=== PATIENT | male | born 1955 | race Caucasian/White ===

== ENCOUNTER 2023-03-07 06:02 | Day surgery (SDC) | payer MEDICARE, SELFPAY ==
[2023-03-07] VITALS (15 sets, daily range): BP systolic 118–168; BP diastolic 80–111; PULSE 61–72; RESP 14–16; TEMP 36.2–36.6; O2SAT 94–96; BMI 36.3
[2023-03-07] MEDS: LACTATED RINGERS 1000 ML 1,000 ML 100 ML IV (06:20)
[2023-03-07] MEDS: SODIUM CHLORIDE 0.9 % (FLUSH) 10 ML SYRINGE IVF (06:46)
[2023-03-07] MEDS: CEFAZOLIN 2 GM INJ IVP (07:25)
--- NOTE | 2023-03-07 07:50 | W.ANESCHARGE ---
Anesthesia Charges Start Date/Time Anesthesia Start Date: 03/07/23 Anesthesia Start Time: 07:15 Stop Date/Time Anesthesia Stop Date: 03/07/23 Anesthesia Stop Time: 08:10
[2023-03-07] MEDS: BUPIVACAINE 0.25% 30 ML INJECTION (07:57)
--- NOTE | 2023-03-07 07:58 | P.ORPRC_ITS ---
Procedure Note Date of procedure: 03/07/23 Procedure: PREOPERATIVE DIAGNOSIS: Left knee medial meniscus tear POSTOPERATIVE DIAGNOSIS: Left knee medial meniscus tear NAME OF OPERATION: Left knee arthroscopic partial medial meniscectomy SURGEON: Eduard Cobb MD PHYSICIAN OFFICE CLIN ASST: Alice García PA-C ANESTHESIA: General ESTIMATED BLOOD LOSS: 0 mL COMPLICATIONS: None SPECIMENS: None DRAINS: None PREOPERATIVE ANTIBIOTICS: Ancef 2 gram INDICATIONS: The patient is a 67-year-old with a history of left knee medial pain. MRI scan is consistent with a medial meniscus tear. Despite appropriate nonoperative management, including activity modification, antiinflammatories, tjcy-kyt-epqtfft pain medication, bracing, physical therapy, and injections they continue to have pain and disability. Operative intervention was offered. The risks, benefits and expected outcomes were discussed in detail. These included but were not limited to: Infection, bleeding, injury to blood vessel or nerve, venous thromboembolism. All questions were answered to their satisfaction. PROCEDURE: Spinal anesthesia was administered. The patient was placed supine on the operating room table. The left lower extremity was prepped and draped in the usual sterile fashion. The limb was exsanguinated with the Karson bandage. The pneumatic tourniquet was inflated to 300 mmHg. A standard anterolateral portal was established. The arthroscope was introduced. The working portal was established anteromedially. Diagnostic arthroscopy was performed with findings as follows: The suprapatellar pouch is normal. Articular surface on the patella shows diffuse grade 2/3 change. Articular surface on the trochlea shows diffuse grade 1/2 change. The medial gutter is normal. The medial compartment shows diffuse grade 3 change on the medial femoral condyle, grade 2 change on the medial tibial plateau. The medial meniscus has a complex degenerative tear of the posterior horn, into the midbody. This primarily consists of a small radial tear at the leading edge of the posterior horn with some undersurface horizontal cleavage tearing. There is a larger radial tear, just off the posterior root, from the leading edge to the capsule. The notch shows the ACL to be intact. The lateral compartment shows normal articular cartilage on the lateral femoral condyle and lateral tibial plateau. The lateral meniscus is normal. The lateral gutter is normal. There is chondrocalcinosis of both menisci The undersurface of the posterior horn of the medial meniscus was debrided to a stable base using a combination of baskets and shaver through both portals. The stump, at the root was debrided with the shaver and basket. Unstable chondral flaps on the medial femoral condyle and patella were debrided with the shaver through both portals, taken to a stable base. Arthroscopic instruments were removed, the portal sites were Steri-Stripped closed, the knee was infiltrated with 30 mL of 0.25% Marcaine without epinephrine. A dry dressing was applied, the tourniquet was released. Sponge and needle counts were correct x 2. The patient tolerated the procedure well. There were no apparent complications. They were carefully transferred to the hospital bed and taken to the postanesthesia care unit in satisfactory condition. PLAN: The patient will be discharged to home. They may weightbear as tolerates. Range of motion will be unrestricted. They will follow up in the office next week for a wound check.
--- NOTE | 2023-03-07 07:59 | W.ANESCHARGE ---
Anesthesia Charges Start Date/Time Anesthesia Start Date: 03/07/23 Anesthesia Start Time: 07:15 Stop Date/Time Anesthesia Stop Date: 03/07/23 Anesthesia Stop Time: 08:10
[2023-03-07] MEDS: LABETALOL HCL 5 MG/ML inj IVP (08:52)
== END 2023-03-07 10:09 | disposition home or self-care (01) ==
PROVIDERS: PCP Family Medicine; Visit Provider Orthopaedic Surgery
PROC: (CPT 29870; principal; 2023-03-07 07:15)
DX: M23.222 Derangement of posterior horn of medial meniscus due to old tear or injury, left knee (principal)
CPT/HCPCS: 29881; 01400; J0690; J2250; J2704; J3010; J3490; J7120

== ENCOUNTER 2023-06-30 19:07 | Emergency (ER) | payer MEDICARE, SELFPAY ==
[2023-06-30 19:29] VITALS: BP 171/106; PULSE 67; RESP 18; TEMP 37; O2SAT 99; BMI 31.3
--- NOTE | 2023-06-30 19:58 | CRLHL7_ITS ---
For Patients: As a result of the Century Cures Act, medical imaging exams and procedure reports are released immediately into your electronic medical record. You may view this report before your referring provider. If you have questions, please contact your health care provider. INDICATION: Suprapubic pain, back pain, hematuria. TECHNIQUE: CT abdomen and pelvis without contrast. Permanently recorded images are archived. COMPARISON: CT abdomen and pelvis 03/16/2015. FINDINGS: Lower chest: Multiple calcified granuloma throughout the lung bases. Liver: Normal in size and attenuation. No suspicious masses. Gallbladder and bile ducts: No stones or inflammation. No biliary dilatation. Pancreas: Unremarkable. No mass or inflammation. Spleen: Normal in size. No masses. Adrenal glands: Normal in size. No nodules. Kidneys, Ureters, and Bladder: No suspicious renal masses, stones, or hydronephrosis. Unremarkable ureters. There are 7 round stones within the bladder lumen, measuring up to 1 cm. Mild circumferential bladder wall thickening with perivesicular inflammatory stranding. GI tract: Unremarkable. No evidence for obstruction or inflammation. The appendix is not clearly visualized. Vasculature: Abdominal aorta is normal in caliber. Lymph nodes: No lymphadenopathy. Peritoneum/Abdominal Wall: Prior ventral hernia repair. No free air or significant free fluid. Pelvis: Prostatomegaly. Bones: Extensive posterior and anterior lumbar fusion hardware from L1-S1. there are also fixation screws within the iliac bone bilaterally. IMPRESSION: 7 round stones within the bladder lumen measuring up to 1 cm with circumferential bladder wall thickening and perivesicular inflammation. Findings compatible with cystitis. Recommend correlation with urinalysis. No hydronephrosis. Prostatomegaly. Please note that all CT scans at this facility use dose modulation, iterative reconstruction, and/or weight-based dosing when appropriate to reduce radiation dose to as low as reasonably achievable. Dictated by Jamison Pop MD @ 06/30/2023 9:21:58 PM (Electronically Signed)
[2023-06-30 20:07] LABS: Lactate* 1.1 mmol/L (0.5-1.9)
[2023-06-30 20:09] LABS: Basophils Absolute Auto 0.02 K/uL (0.00-0.30); Basophils Percent Auto 0.2 % (0.0-3.0); Eosinophils Absolute Auto 0.16 K/uL (0.00-0.50); Eosinophils Percent Auto 1.7 % (0.0-7.0); Hematocrit 44.9 % (37.0-53.0); Hemoglobin* 15.4 gm/dL (13.5-17.5); Immature Granulocytes Abs Auto 0.01 K/uL (0.00-0.30); Immature Granulocytes Pct Auto 0.1 %; Lymphocytes Absolute Auto 2.09 K/uL (0.90-2.90); Lymphocytes Percent Auto 22.5 % (20-44); Mean Corpuscular HGB Conc 34 gm/dL (32-36); Mean Corpuscular Hemoglobin 31 pg (26-34); Mean Corpuscular Volume 90 fL (80-100); Monocytes Percent Auto 8.6 % (0.0-11.0); Neutrophils Percent Auto 66.9 % (42.0-72.0); Platelet Count* 178 K/uL (140-440); RDW Coefficient of Variation % 12.3 % (11.5-15.5); Red Blood Count 5.01 m/uL (4.30-5.90); White Blood Count* 9.28 K/uL (4.50-11.00)
[2023-06-30 20:11] LABS: Slide Review Reflex No
[2023-06-30 20:17] LABS: Appearance Urine Cloudy (Clear); Bilirubin Urine Negative (Negative); Blood Urine 2+ (Negative); Color Urine Yellow (Yellow); Glucose Urine Negative (Negative); Ketones Urine Negative (Negative); Leukocyte Esterase Urine Negative (Negative); Nitrite Urine Negative (Negative); Protein Urine 3+ (Negative); Specific Gravity Urine >= 1.030 (1.000-1.030); pH Urine 6.5 (5.0-8.5)
[2023-06-30 20:19] LABS: Creatinine, Point-of-Care* 0.8 mg/dl (0.6-1.3)
[2023-06-30 20:25] LABS: Chloride* 108 mmol/L (96-114)
[2023-06-30 20:26] LABS: Potassium* 3.8 mmol/L (3.6-5.1); Sodium* 137 mmol/L (135-149)
[2023-06-30 20:28] LABS: Bacteria Urine Few; Fine Granular Casts Urine Few; Squamous Epithelial Cell Urine Few (None-Few)
[2023-06-30 20:28] LABS: Creatinine* 0.7 mg/dL (0.5-1.5); Est. Creatinine Clearance* 67.94; Estimated Glomerular Filt Rate 102 ml/min
[2023-06-30 20:29] LABS: Anion Gap 7 mEq/L (7-15); Blood Urea Nitrogen* 20 mg/dL (7-30); Calcium* 8.7 mg/dL (8.4-10.6); Carbon Dioxide* 22 mmol/L (20-32); Glucose* 86 mg/dL (60-115)
[2023-06-30] MEDS: HYDROmorphone 0.5 mg/0.5 ml inj IVP (20:30)
--- NOTE | 2023-06-30 20:59 | ED.GENADULT ---
HPI - General Adult General Chief complaint: Urogenital Problems, Male Stated complaint: Severe pain-cant urinate-blood Time Seen by Provider: 06/30/23 19:30 History of Present Illness HPI narrative: This is a 68-year-old male who has a history of low back problems and multiple low back surgeries including fusion of his entire lumbar spine, history of multiple previous kidney stones (no previous urologic interventions necessary), osteoarthritis who presents to ER today with his for evaluation of symptoms including hematuria, urinary urgency and frequency and some urinary incontinence, suprapubic pain flank pain, all ongoing intermittently for about 5 weeks. Patient said he has had symptoms of intermittent episodes of pain in the suprapubic rate and that sometimes radiates to his flank that happen every few days or fiber 6 days for the past 5 weeks or so. It typically have a day or to a bad pain and then the following day will pass urine that is frankly bloody. The day after that help pass urine with dark purplish/reddish material and sometimes whitish material. After that symptoms will subside for a few days and then recur with an episode of pain, followed by bleeding, followed by more material. He has not had any fevers. No vomiting. Bowel movements normal. Says for the past couple of weeks he has actually had trouble with dribbling and incontinence of urine. No new back pain. He saw a provider at the [facility] clinic. No urinalysis, labs, or scan. He was given outpatient referral to see a urologist, but that apparently is not available until August. Because of his ongoing symptoms he came here to the ER tonight. He cannot wait until August to have evaluation. Related Data Home Medications Medication Instructions Recorded Confirmed tamsulosin 0.4 mg capsule 0.4 mg PO DAILY 06/30/23 06/30/23 Previous Rx's Medication Instructions Recorded cefdinir 300 mg capsule 300 mg PO BID #20 caps 06/30/23 hydrocodone 5 mg-acetaminophen 325 1 tab PO Q6H PRN pain #10 tabs 06/30/23 mg tablet Allergies Allergy/AdvReac Type Severity Reaction Status Date / Time No Known Drug Allergies Allergy Verified 06/30/23 19:31 [facility] Medical History (Updated 06/30/23 @ 22:10 by Jamison Munoz MD) Essential hypertension ?I10 - Essential (primary) hypertension (ICD-10) Adjustment disorder with mixed anxiety and depressed mood ?F43.23 - Adjustment disorder with mixed anxiety and depressed mood (ICD-10) Lumbar stenosis with neurogenic claudication ?M48.062 - Spinal stenosis, lumbar region with neurogenic claudication (ICD-10) Thrombocytopenia ?D69.6 - Thrombocytopenia, unspecified (ICD-10) DDD (degenerative disc disease), lumbar ?M51.36 - Other intervertebral disc degeneration, lumbar region (ICD-10) 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 ?F06.30 - Mood disorder due to known physiological condition, unspecified (ICD-10) Other diseases of lung, not elsewhere classified ?J98.4 - Other disorders of lung (ICD-10) Hyperlipidemia ?E78.5 - Hyperlipidemia, unspecified (ICD-10) Heart contusion without mention of open wound into thorax ?S26.91XA - Contusion of heart, unspecified with or without hemopericardium, initial encounter (ICD-10) Surgical History (Updated 03/07/23 @ 16:21 by Ana Maria Valverde ~ [facility], [facility]) Status post arthroscopic partial medial meniscectomy of left knee (03/07/23) ?Z98.890 - Other specified postprocedural states (ICD-10) ?Z87.828 - Personal history of other (healed) physical injury and trauma (ICD-10) Hx of umbilical hernia repair ?Z98.890 - Other specified postprocedural states (ICD-10) ?Z87.19 - Personal history of other diseases of the digestive system (ICD-10) H/O lumpectomy ?Z98.890 - Other specified postprocedural states (ICD-10) History of lumbar fusion (~2014) ?Z98.1 - Arthrodesis status (ICD-10) Hx of appendectomy ?Z90.49 - Acquired absence of other specified parts of digestive tract (ICD-10) Social History Smoking Status: Never smoker How often do you have a drink containing alcohol: never AUDIT-C Alcohol total score: 0 Non-prescribed substance use: denies use Exam Narrative: Exam Narrative: Constitutional: Appears well-developed and well-nourished. Alert. Conversant, but mildly hard of hearing. Non toxic. HENT: Head: Atraumatic. Nose: Nose normal. Mouth/Throat: Oral mucosa is clear and moist. no trismus. Pharynx normal. Tonsils symmetric. No tonsillar enlargement, erythema, or exudate. Eyes: Conjunctivae normal. EOM normal. Pupils equal, round, and reactive to light. No scleral icterus. Neck: Normal range of motion. Neck supple. No tracheal deviation present. Cardiovascular: Normal rate, regular rhythm. No gallop. No friction rub. No murmur heard. Symmetric radial artery pulses Pulmonary/Chest: Effort normal. No stridor. No respiratory distress. No wheezes. No rales. No rhonchi . No tenderness. Abdominal: Soft. Bowel sounds normal. No distension. Suprapubic mass. No tenderness. No rebound. No guarding. No CVA tenderness Musculoskeletal: Healed posterior midline lumbar incision and healed anterior midline lumbar incision from previous fusion surgeries. RUE: Normal range of motion. No tenderness. No deformity LUE: Normal range of motion. No tenderness. No deformity RLE: Normal range of motion. No edema. No tenderness. No deformity LLE: Normal range of motion. No edema. No tenderness. No deformity Neurological: Alert and oriented to person, place, and time. Normal strength. CN II-VII intact. No sensory deficit. GCS eye subscore is 4. GCS verbal subscore is 5. GCS motor subscore is 6. Normal coordination Skin: Skin is warm and dry. No rash noted. No pallor. Normal capillary refill. Psychiatric: Normal mood. Normal affect. Const: Vital Signs, click to edit/add: Vital Signs - 24 hr 06/30/23 19:29 Temperature 98.6 F Pulse Rate [Right Pulse Oximeter] 67 Respiratory Rate 18 Blood Pressure [Ri ght Upper Arm] 171/106 H Pulse Oximetry 99 Oxygen Delivery Me thod Room Air Course Vital Signs Vital signs: Initial Vital Signs Temperature 98.6 F 06/30/23 19:29 Temperature Source Temporal Artery Scan 06/30/23 19:29 Pulse Rate 67 06/30/23 19:29 Respiratory Rate 18 06/30/23 19:29 Blood Pressure 171/106 H 06/30/23 19:29 Blood Pressure Mean 127 H 06/30/23 19:29 Blood Pressure Position Sitting 06/30/23 19:29 Pulse Oximetry 99 06/30/23 19:29 Oxygen Delivery Method Room Air 06/30/23 19:29 Vital Signs Temperature 98.6 F 06/30/23 19:29 Pulse Rate 67 06/30/23 19:29 Respiratory Rate 18 06/30/23 19:29 Blood Pressure 171/106 H 06/30/23 19:29 Pulse Oximetry 99 06/30/23 19:29 Oxygen Delivery Method Room Air 06/30/23 19:29 Temperature 98.6 F 06/30/23 19:29 Pulse Rate 67 06/30/23 19:29 Respiratory Rate 18 06/30/23 19:29 Blood Pressure 171/106 H 06/30/23 19:29 Pulse Oximetry 99 06/30/23 19:29 Oxygen Delivery Method Room Air 06/30/23 19:29 Medical Decision Making MDM Narrative Medical decision making narrative: 68-year-old male with a history of multiple previous kidney stones presenting to the ER today with intermittent symptoms of suprapubic pain, hematuria, dysuria and sometimes bladder incontinence ongoing intermittently for about 5 weeks. Differential here includes kidney stone, pyelonephritis, urosepsis, cystitis, bladder stones, bladder fistula, pelvic abscesses, diverticulitis, among other. He does have previous lumbar fusion surgery and chronic back pain but does not have any other symptoms of a expect flaring back pain, new numbness or tingling in his legs to suggest cauda quinine or other neurologic surgical emergency. Workup here in the ER reveals evidence for urinary tract infection given findings on urinalysis and abnormal bladder on CT. Fortunately no obstructing kidney stones. Kidney function normal. White count normal. Patient is hemodynamically stable, nontoxic appearing and I do not think he has urosepsis at this time. He does have multiple bladder stones. Suspect these are probably colonized by bacteria so would be difficult to completely clear his infection until they were removed. Patient has previously been referred as an outpatient through the [employer] system to Urology, but cannot get an appointment until August. Discussed with urology through [facility]. Discussed with the on-call urologist for [facility], Dr. Morgan. His recommendation would be to start antibiotics and refer for outpatient Neurology follow-up. He was surprised to hear that the patient has been delayed until August to get an appointment. He indicates that if they call the main rehabilitation aide/scheduler line [phone] that the patient will likely be able to get an appointment to see a urologist within 1-2 weeks (which he indicates is a reasonable time frame to deal with his bladder stones). No indication for emergent transfer to [facility]. Discussed the plan of care with the patient and his . They are pleased that we were able to do diagnostic workup here and contact Urology. They are agreeable to start antibiotics here-Rocephin 1 g IV and will continue antibiotics at home-Omnicef 300 mg b.i.d. for complicated UTI. Urine culture pending. Prescription for [place] prescribed for pain relief. I do believe they are reliable to call Monday morning to schedule her follow-up appointment. Precautions for return to the ER carefully reviewed. Questions answered. Patient and his are in agreement. Lab Data Labs: Lab Results 06/30/23 06/30/23 Range/Units 20:00 20:12 WBC 9.28 (4.50-11.00) K/uL RBC 5.01 (4.30-5.90) m/uL Hgb 15.4 (13.5-17.5) gm/dL Hct 44.9 (37.0-53.0) % MCV 90 (80-100) fL MCH 31 (26-34) pg MCHC 34 (32-36) gm/dL RDW Coeff of Ramona 12.3 (11.5-15.5) % Plt Count 178 (140-440) K/uL Neut % (Auto) 66.9 (42.0-72.0) % Lymph % (Auto) 22.5 (20-44) % [place] % (Auto) 8.6 (0.0-11.0) % Eos % (Auto) 1.7 (0.0-7.0) % Baso % (Auto) 0.2 (0.0-3.0) % Neut # (Auto) 6.20 (1.7-7.0) K/uL Lymph # (Auto) 2.09 (0.90-2.90) K/uL [place] # (Auto) 0.80 (0.00-0.90) K/UL Eos # (Auto) 0.16 (0.00-0.50) K/uL Baso # (Auto) 0.02 (0.00-0.30) K/uL Abs Immat Gran (auto) 0.01 (0.00-0.30) K/uL Imm/Tot Granulo (auto) 0.1 % Sodium 137 (135-149) mmol/L Potassium 3.8 (3.6-5.1) mmol/L Chloride 108 (96-114) mmol/L Carbon Dioxide 22 (20-32) mmol/L Anion Gap 7 (7-15) mEq/L BUN 20 (7-30) mg/dL Creatinine 0.7 (0.5-1.5) mg/dL Estimated Creat Clear 67.94 Estimated GFR 102 ml/min Glucose 86 (60-115) mg/dL Lactate 1.1 (0.5-1.9) mmol/L Calcium 8.7 (8.4-10.6) mg/dL Urine Color Yellow (Yellow) Urine Appearance Cloudy A (Clear) Urine pH 6.5 (5.0-8.5) Ur Specific [place] >= 1.030 (1.000-1.030) Urine Protein 3+ A (Negative) Urine Glucose (UA) Negative (Negative) Urine Ketones Negative (Negative) Urine Blood 2+ A (Negative) Urine Nitrite Negative (Negative) Urine Bilirubin Negative (Negative) Urine Urobilinogen 4.0 A (0.2-1.0) Ur Leukocyte Esterase Negative (Negative) Urine RBC 5-10 A (0-2) Urine WBC 5-10 A (0-5) Ur Squamous Epith Cells Few (None-Few) Urine Bacteria Few A (None) Fine Granular Casts Few A (None) POC Creatinine 0.8 (0.6-1.3) mg/dl Imaging Data CT scan - abdomen: Attestation: I have reviewed the pertinent imaging results. Radiologist's impression: IMPRESSION: 7 round stones within the bladder lumen measuring up to 1 cm with circumferential bladder wall thickening and perivesicular inflammation. Findings compatible with cystitis. Recommend correlation with urinalysis. No hydronephrosis. Prostatomegaly. Discharge Plan Discharge Clinical Impression: Bladder stones, Cystitis, Prostatic hypertrophy Patient Disposition: Home, Self-Care Condition: Stable Instructions: Urinary Tract Infection in Men (DC), Bladder Stones (ED) Additional Instructions: Please start on the antibiotics tomorrow to treat her bladder infection. Use pain medication if needed for pain, but be careful because pain killers can cause drowsiness, sedation, constipation. Pain killers can be addictive. On Monday morning, call [phone] to schedule a follow-up appointment with [facility]. Please tell the rehabilitation aide/scheduler that you were in the ER tonight and that we discussed with the on-call urologist, Dr. Morgan. you need appointment within 1-2 weeks to recheck for your bladder bladder infection and bladder stones. If you have worsening symptoms, worsening pain, higher fever, nausea or vomiting, weakness, if you are unable to take her antibiotics, or if you have any problems, please come back to the ER to be rechecked. Activity Level: No Restrictions Discharge Diet: Regular Prescriptions: New cefdinir 300 mg capsule 300 mg PO BID Qty: 20 0RF hydrocodone-acetaminophen 5-325 mg tablet 1 tab PO Q6H PRN (Reason: pain) Qty: 10 0RF No Action tamsulosin 0.4 mg capsule 0.4 mg PO DAILY Follow Up/Referrals: Provider,Not a Local [Primary Care Provider] - Stand Alone Forms: [id number] [email or web address] Info Instructions
[2023-06-30] MEDS: ONDANSETRON 2 MG/ML inj 4 MG IVP (21:53)
[2023-06-30] MEDS: cefTRIAXone 1 GM in 0.9 % SODIUM CHLORIDE Mini-bag 100 ML IVPB (21:53)
== END 2023-06-30 22:21 | disposition home or self-care (01) ==
PROVIDERS: Emergency Provider Emergency Medicine
DX: N21.0 Calculus in bladder (principal); N30.90 Cystitis, unspecified without hematuria; N40.0 Benign prostatic hyperplasia without lower urinary tract symptoms
CPT/HCPCS: 36415; 51798; 74176; 80048; 81001; 82565; 83605; 85025; 87086; 96374; 96375; 99283; 99284; 99285; J0696; J1170; J2405

== ENCOUNTER 2023-07-07 06:54 | Outpatient (CLI) | payer MEDICARE, SELFPAY ==
--- NOTE | 2023-07-07 07:15 | MR_ITS ---
[address] [address] Phone:?[phone] Fax:?[phone] Referring Physician Information: Jamison Klein M.D. [address] [facility] [address] Phone:?[phone] Fax:?[phone] Patient:Kirsty Iyer D.O.B:?1955 Sex:?Male Phone:?[phone] [facility] MRN:?[id number] Exam Date:?07/07/2023 EXAM: MR PROSTATE WITHOUT AND WITH CONTRAST CLINICAL INFORMATION: Diagnosis Code: Z12.5 - Encounter for screening for malignant neoplasm of prostate. COMPARISON: None. TECHNICAL INFORMATION: Examination was performed on a 1.5T magnet. High- resolution T1 axial, T2 axial, T2 FSE sagittal and T2 FSE coronal images were obtained through the prostate gland and seminal vesicles. Diffusion images were obtained in the axial plane. 18 mL of Dotarem were injected with dynamic enhanced images of the prostate gland in the axial plane. T1 fat saturation sagittal and coronal images were obtained postinjection. Images were analyzed with 3-D postprocessing online under concurrent physician supervision using a separate [employer] workstation. INTERPRETATION: The prostate gland measures 6.0 x 5.4 x 6.0 cm (TV x AP x SI) for an estimated volume of 90 cc. Transitional and central zones: There is moderate glandular and stromal hyperplasia with well encapsulated BPH nodules (PI-RADS 2). No focal CZ/TZ lesions concerning for clinically significant adenocarcinoma. Peripheral zones: No focal PZ lesions concerning for clinically significant adenocarcinoma (PI-RADS 1). Pelvis: No jessica transcapsular disease. Neurovascular bundles and seminal vesicles appear intact. No pelvic lymphadenopathy or evident bone marrow disease. The urinary bladder contains multiple small (~8 mm) intraluminal calculi. CONCLUSION: 1. Moderate prostatomegaly with stigmata of BPH. No suspicious (PI-RADS 3, 4, or 5) lesions identified. 2. No jessica transcapsular, yanet, or skeletal disease in the pelvis. 3. Multiple small bladder calculi. PI-RADS Assessment Categories: Score 1 = very low; clinically significant disease highly unlikely Score 2 = low; clinically significant disease is unlikely Score 3 = intermediate; clinically significant disease is equivocal Score 4 = high; clinically significant disease is likely Score 5 = very high; clinically significant disease is highly likely Electronically signed on 07/08/2023 8:34:00 AM by Jamison Liang M.D.
== END 2023-07-07 06:55 | disposition home or self-care (01) ==
LOC: MRI 06:55
DX: Z12.5 Encounter for screening for malignant neoplasm of prostate (principal); N21.0 Calculus in bladder
CPT/HCPCS: 72197; A9575

== ENCOUNTER 2023-07-25 13:37 | Inpatient (IN) | payer MEDICARE, SELFPAY ==
[2023-07-25] VITALS (13 sets, daily range): BP systolic 109–152; BP diastolic 60–93; PULSE 92–126; RESP 18–22; TEMP 37.1–38.6; O2SAT 94–98; BMI 32.9; BMI 28.9
[2023-07-25 14:26] LABS: Appearance Urine Cloudy (Clear); Bilirubin Urine 1+ (Negative); Blood Urine 3+ (Negative); Color Urine Yellow (Yellow); Glucose Urine Trace (Negative); Ketones Urine Trace (Negative); Leukocyte Esterase Urine 1+ (Negative); Nitrite Urine Positive (Negative); Protein Urine 3+ (Negative); Specific Gravity Urine >= 1.030 (1.000-1.030); Urobilinogen Urine 0.2 (0.2-1.0); pH Urine 5.5 (5.0-8.5)
[2023-07-25 14:40] LABS: Bacteria Urine Many; RBC Urine >100 (0-2); Squamous Epithelial Cell Urine Few (None-Few); WBC Urine 25-50 (0-5)
[2023-07-25 14:56] LABS: Basophils Percent Auto 0.2 % (0.0-3.0); Eosinophils Percent Auto 0.1 % (0.0-7.0); Hemoglobin* 14.9 gm/dL (13.5-17.5); Immature Granulocytes Pct Auto 0.4 %; Lymphocytes Percent Auto 4.7 % (20-44); Mean Corpuscular HGB Conc 34 gm/dL (32-36); Mean Corpuscular Hemoglobin 31 pg (26-34); Mean Corpuscular Volume 90 fL (80-100); Monocytes Percent Auto 6.8 % (0.0-11.0); Neutrophils Percent Auto 87.8 % (42.0-72.0); Platelet Count* 82 K/uL (140-440); RDW Coefficient of Variation % 12.5 % (11.5-15.5); Red Blood Count 4.87 m/uL (4.30-5.90)
[2023-07-25] MEDS: 0.9 % SODIUM CHLORIDE 1000 ml 1,000 ML IV ×2 (15:10→21:01)
--- NOTE | 2023-07-25 15:14 | CRLHL7_ITS ---
For Patients: As a result of the Cures Act, medical imaging exams and procedure reports are released immediately into your electronic medical record. You may view this report before your referring provider. If you have questions, please contact your health care provider. INDICATION: Chest pain. TECHNIQUE: Chest radiographs, two views. COMPARISON: None. FINDINGS: Lines/Tubes/Devices: None. Mediastinum: Normal cardiac silhouette. Lungs: No focal consolidation. Linear bandlike opacifications of the lung bases likely due to subsegmental atelectasis and/or scarring. Pleura: No pleural effusions or pneumothorax. Bones: No acute osseous abnormalities. Orthopedic Spine fixation hardware of the lumbar spine. Upper Abdomen: Unremarkable. IMPRESSION: No acute cardiopulmonary process. Dictated by Travis Reyes MD @ 07/25/2023 3:47:40 PM (Electronically Signed)
[2023-07-25 15:24] LABS: Chloride* 105 mmol/L (96-114); Potassium* 3.7 mmol/L (3.6-5.1); Sodium* 131 mmol/L (135-149)
[2023-07-25 15:25] LABS: Slide Review Reflex Yes
--- NOTE | 2023-07-25 15:25 | ED.GENADULT ---
HPI - General Adult General Chief complaint: Weakness Stated complaint: genital pain Time Seen by Provider: 07/25/23 14:30 Source: patient Mode of arrival: ambulatory Limitations: no limitations History of Present Illness HPI narrative: 68-year-old male, with a history of BPH, hypertension, depression, osteoarthritis, presenting today not feeling well. Patient is about 2 weeks postop prostate surgery. Going through his records, it appears that the patient had a robotic assisted simple prostatectomy. He states he has been doing well until the middle of the night last night where he started to feel ill. He complains of feeling achy and weak all over. He denies fevers, states that every now and then he has a little bit of a chill. He denies nausea or vomiting. No abdominal pain. He is not coughing or short of breath. He states that his urine turned brown which he was told he was going to. He denies any swelling or redness at the insertion of his urinary catheter. He denies any penile or testicular swelling. He is not having diarrhea or constipation. Related Data Home Medications Medication Instructions Recorded Confirmed No Known Home Medications 07/25/23 07/25/23 Allergies Allergy/AdvReac Type Severity Reaction Status Date / Time No Known Drug Allergies Allergy Verified 07/25/23 13:20 Review of Systems Status of ROS: Reports: 10 or more systems reviewed and unremarkable except as noted in History and below [facility] Medical History Essential hypertension ?I10 - Essential (primary) hypertension (ICD-10) Adjustment disorder with mixed anxiety and depressed mood ?F43.23 - Adjustment disorder with mixed anxiety and depressed mood (ICD-10) Lumbar stenosis with neurogenic claudication ?M48.062 - Spinal stenosis, lumbar region with neurogenic claudication (ICD-10) Thrombocytopenia ?D69.6 - Thrombocytopenia, unspecified (ICD-10) DDD (degenerative disc disease), lumbar ?M51.36 - Other intervertebral disc degeneration, lumbar region (ICD-10) 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 ?F06.30 - Mood disorder due to known physiological condition, unspecified (ICD-10) Other diseases of lung, not elsewhere classified ?J98.4 - Other disorders of lung (ICD-10) Hyperlipidemia ?E78.5 - Hyperlipidemia, unspecified (ICD-10) Heart contusion without mention of open wound into thorax ?S26.91XA - Contusion of heart, unspecified with or without hemopericardium, initial encounter (ICD-10) Surgical History Status post arthroscopic partial medial meniscectomy of left knee (03/07/23) ?Z98.890 - Other specified postprocedural states (ICD-10) ?Z87.828 - Personal history of other (healed) physical injury and trauma (ICD-10) Hx of umbilical hernia repair ?Z98.890 - Other specified postprocedural states (ICD-10) ?Z87.19 - Personal history of other diseases of the digestive system (ICD-10) H/O lumpectomy ?Z98.890 - Other specified postprocedural states (ICD-10) History of lumbar fusion (~2014) ?Z98.1 - Arthrodesis status (ICD-10) Hx of appendectomy ?Z90.49 - Acquired absence of other specified parts of digestive tract (ICD-10) Social History Smoking Status: Never smoker How often do you have a drink containing alcohol: never AUDIT-C Alcohol total score: 0 Non-prescribed substance use: denies use Exam Narrative: Exam Narrative: Well-nourished well-developed patient in no acute distress. Alert and oriented. Answers questions appropriately. Mood and affect are appropriate. Thoughts are goal oriented and rational. No tangential or magical thinking noted. Patient speaks in full sentences without needing to catch his breath. HEENT: Normocephalic atraumatic. Pupils are equally round reactive to light. Extraocular muscles are intact. Conjunctivae are moist without any icterus noted. Moist mucous membranes. Posterior pharynx is normal. Neck is soft without any lymphadenopathy or thyromegaly. No masses are appreciated. Cardiovascular: Heart is tachycardic, regular rhythm, S1 and S2 are present without any murmurs. Lungs: Clear to auscultation bilaterally no wheezes rhonchi or rales are appreciated. Patient takes deep breaths without any discomfort. Abdomen: Soft and nontender nondistended with normal bowel sounds. Six small abdominal incisions appear to be healing appropriately. Extremities: Bilateral lower extremities are without edema. Normal DP and PT pulses. Skin: Well perfused without any obvious rashes. : Normal external male genitalia. Catheter in place draining brown but clear urine. Const: Vital Signs, click to edit/add: Vital Signs - 24 hr 07/25/23 13:45 07/25/23 15:37 07/25/23 15:41 Temperature 99.9 F H 99.9 F H Pulse Rate 112 H Pulse Rate [Pulse Oximeter] 126 H Respiratory Rate 18 Blood Pressure Blood Pressure [Ri ght Upper Arm] 109/60 Pulse Oximetry 94 96 Oxygen Delivery Me thod Room Air 07/25/23 15:41 07/25/23 15:45 07/25/23 16:00 Temperature Pulse Rate 108 H 106 H 111 H Pulse Rate [Pulse Oximeter] Respiratory Rate Blood Pressure 152/93 H Blood Pressure [Ri ght Upper Arm] Pulse Oximetry 97 97 98 Oxygen Delivery Me thod 07/25/23 16:02 Temperature Pulse Rate 105 H Pulse Rate [Pulse Oximeter] Respiratory Rate Blood Pressure 147/88 H Blood Pressure [Ri ght Upper Arm] Pulse Oximetry 95 Oxygen Delivery Me thod Course Course ED Course: IV was established and fluids were started. Labs show a markedly elevated white cell count and CRP. Urinalysis is grossly positive for signs of infection. Chest x-ray, read by me, was unremarkable. Blood and urine cultures pending. Patient started on imipenem and vancomycin. Vital Signs Vital signs: Initial Vital Signs Temperature 99.9 F H 07/25/23 13:45 Temperature Source Temporal Artery Scan 07/25/23 13:45 Pulse Rate 126 H 07/25/23 13:45 Respiratory Rate 18 07/25/23 13:45 Blood Pressure 109/60 07/25/23 13:45 Blood Pressure Mean 76 07/25/23 13:45 Blood Pressure Position Supine 07/25/23 13:45 Pulse Oximetry 94 07/25/23 13:45 Oxygen Delivery Method Room Air 07/25/23 13:45 Vital Signs Temperature 99.9 F H 07/25/23 13:45 Pulse Rate 126 H 07/25/23 13:45 Respiratory Rate 18 07/25/23 13:45 Blood Pressure 109/60 07/25/23 13:45 Pulse Oximetry 94 07/25/23 13:45 Oxygen Delivery Method Room Air 07/25/23 13:45 Temperature 99.9 F H 07/25/23 15:41 Pulse Rate 105 H 07/25/23 16:02 Respiratory Rate 18 07/25/23 13:45 Blood Pressure 147/88 H 07/25/23 16:02 Pulse Oximetry 95 07/25/23 16:02 Oxygen Delivery Method Room Air 07/25/23 13:45 Medications Administered Medications: Discontinued Medications Generic Name Dose Route Start Last Admin Trade Name Freq PRN Reason Stop Dose Admin Acetaminophen 1,000 mg 07/25/23 15:15 07/25/23 15:41 Acetaminophen 500 Mg Tablet PO 07/25/23 15:16 1,000 mg ONCE ONE Administration Sodium Chloride 1,000 mls @ 1,000 mls/hr 07/25/23 15:00 07/25/23 15:10 0.9 % Sodium Chloride 1000 Ml IV 07/25/23 15:59 1,000 mls/hr .Q1H FRANCES Administration Imipenem/Cilastatin Sodium 500 100 mls @ 200 mls/hr 07/25/23 15:30 07/25/23 16:05 mg/ Sodium Chloride IVPB 07/25/23 15:31 200 mls/hr ONCE ONE Administration Medical Decision Making MDM Narrative Medical decision making narrative: 68-year-old male with postop fever and sepsis. A 2 L of fluid and antibiotics initiated in the ED. Given his lack of increasing abdominal discomfort, imaging was not done in the ED today. Patient will be admitted for further management. Medical Records Medical records reviewed: Yes I reviewed the patient's medical records Lab Data Lab results reviewed: Yes I reviewed the patient's lab results Labs: Lab Results 07/25/23 07/25/23 Range/Units 14:20 14:40 WBC 25.12 H* (4.50-11.00) K/uL RBC 4.87 (4.30-5.90) m/uL Hgb 14.9 (13.5-17.5) gm/dL Hct 44.0 (37.0-53.0) % MCV 90 (80-100) fL MCH 31 (26-34) pg MCHC 34 (32-36) gm/dL RDW Coeff of Ramona 12.5 (11.5-15.5) % Plt Count 82 L (140-440) K/uL Neut % (Auto) 87.8 H (42.0-72.0) % Lymph % (Auto) 4.7 L (20-44) % [place] % (Auto) 6.8 (0.0-11.0) % Eos % (Auto) 0.1 (0.0-7.0) % Baso % (Auto) 0.2 (0.0-3.0) % Neut # (Auto) 22.10 H (1.7-7.0) K/uL Lymph # (Auto) 1.20 (0.90-2.90) K/uL Wilcox # (Auto) 1.70 H (0.00-0.90) K/UL Eos # (Auto) 0.00 (0.00-0.50) K/uL Baso # (Auto) 0.10 (0.00-0.30) K/uL Abs Immat Gran (auto) 0.10 (0.00-0.30) K/uL Imm/Tot Granulo (auto) 0.4 % Sodium 131 L (135-149) mmol/L Potassium 3.7 (3.6-5.1) mmol/L Chloride 105 (96-114) mmol/L Carbon Dioxide 26 (20-32) mmol/L Anion Gap 0 L (7-15) mEq/L BUN 20 (7-30) mg/dL Creatinine 0.8 (0.5-1.5) mg/dL Estimated Creat Clear 67.94 Estimated GFR 98 ml/min Glucose 218 H (60-115) mg/dL Lactate 2.0 H (0.5-1.9) mmol/L Calcium 8.9 (8.4-10.6) mg/dL C-Reactive Protein 14.5 H (0.5-1.0) mg/dL Urine Color Yellow (Yellow) Urine Appearance Cloudy A (Clear) Urine pH 5.5 (5.0-8.5) Ur Specific [place] >= 1.030 (1.000-1.030) Urine Protein 3+ A (Negative) Urine Glucose (UA) Trace A (Negative) Urine Ketones Trace A (Negative) Urine Blood 3+ A (Negative) Urine Nitrite Positive A (Negative) Urine Bilirubin 1+ A (Negative) Urine Urobilinogen 0.2 (0.2-1.0) Ur Leukocyte Esterase 1+ A (Negative) Urine RBC >100 A (0-2) Urine WBC 25-50 A (0-5) Ur Squamous Epith Cells Few (None-Few) Urine Bacteria Many A (None) Imaging Data Chest x-ray: Attestation: I have reviewed the pertinent imaging results. Radiologist's impression: Chest radiographs, two views. COMPARISON: None. FINDINGS: Lines/Tubes/Devices: None. Mediastinum: Normal cardiac silhouette. Lungs: No focal consolidation. Linear bandlike opacifications of the lung bases likely due to subsegmental atelectasis and/or scarring. Pleura: No pleural effusions or pneumothorax. Bones: No acute osseous abnormalities. Orthopedic Spine fixation hardware of the lumbar spine. Upper Abdomen: Unremarkable. IMPRESSION: No acute cardiopulmonary process. Discharge Plan Discharge Clinical Impression: Post-operative infection, Complicated urinary tract infection, Sepsis Patient Disposition: Admitted As Observation Condition: Stable
[2023-07-25 15:26] LABS: White Blood Count* 25.12 K/uL (4.50-11.00)
[2023-07-25 15:27] LABS: Creatinine* 0.8 mg/dL (0.5-1.5); Est. Creatinine Clearance* 67.94; Estimated Glomerular Filt Rate 98 ml/min
[2023-07-25 15:28] LABS: Anion Gap 0 mEq/L (7-15); Blood Urea Nitrogen* 20 mg/dL (7-30); Calcium* 8.9 mg/dL (8.4-10.6); Carbon Dioxide* 26 mmol/L (20-32); Glucose* 218 mg/dL (60-115)
[2023-07-25] MEDS: ACETAMINOPHEN 500 MG TABLET 1000 MG PO (15:41)
[2023-07-25 15:45] LABS: C Reactive Protein* 14.5 mg/dL (0.5-1.0)
--- NOTE | 2023-07-25 15:45 | ED.NURSE ---
Pt's leg bag changed to large urine bag and hung on side of bed. ~200 cc urine emptied from bag.
--- NOTE | 2023-07-25 18:40 | PM.IMHP1 ---
Hospitalist- H&P: HPI History of Present Illness Date Seen: 07/25/23 Chief complaint: gentital pain Narrative: Quinton Iyer is a 68 year old male with recent prostate surgery admitted to the hospital with a 1 day history of fever, fatigue malaise myalgias. On July 17 patient underwent robotic prostatectomy for BPH and bladder stones. Six bladder stones were removed from his bladder, they were up to grape size. He did well after surgery. He had a catheter in place. He was feeling well until last night when he developed a fever and felt quite ill. Today came to the emergency room where he was evaluated. This was thought to be a urinary infection. He met criteria for sepsis. He was given fluids and broad-spectrum antibiotics. He has no other focus of infection. He has not had any upper respiratory illness, cold, cough, sore throat, shortness of breath. No chest pain. No abdominal pain. He reports he has been eating and drinking normally. Bowel function has been normal. He has a Mei catheter in place and he has been emptying his catheter regularly. Review of Systems Narrative: Other than the past day of fever malaise myalgias he reports generally being well recently. [facility] Medical History (Updated 07/25/23 @ 18:52 by Edward Driscoll MD) Bladder stones ?N21.0 - Calculus in bladder (ICD-10) Essential hypertension ?I10 - Essential (primary) hypertension (ICD-10) Adjustment disorder with mixed anxiety and depressed mood ?F43.23 - Adjustment disorder with mixed anxiety and depressed mood (ICD-10) Lumbar stenosis with neurogenic claudication ?M48.062 - Spinal stenosis, lumbar region with neurogenic claudication (ICD-10) Thrombocytopenia ?D69.6 - Thrombocytopenia, unspecified (ICD-10) DDD (degenerative disc disease), lumbar ?M51.36 - Other intervertebral disc degeneration, lumbar region (ICD-10) 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 ?F06.30 - Mood disorder due to known physiological condition, unspecified (ICD-10) Other diseases of lung, not elsewhere classified ?J98.4 - Other disorders of lung (ICD-10) Hyperlipidemia ?E78.5 - Hyperlipidemia, unspecified (ICD-10) Heart contusion without mention of open wound into thorax ?S26.91XA - Contusion of heart, unspecified with or without hemopericardium, initial encounter (ICD-10) Surgical History (Updated 07/25/23 @ 18:45 by Edward Driscoll MD) History of robot-assisted laparoscopic radical prostatectomy ?Z90.79 - Acquired absence of other genital organ(s) (ICD-10) Status post arthroscopic partial medial meniscectomy of left knee (03/07/23) ?Z98.890 - Other specified postprocedural states (ICD-10) ?Z87.828 - Personal history of other (healed) physical injury and trauma (ICD-10) Hx of umbilical hernia repair ?Z98.890 - Other specified postprocedural states (ICD-10) ?Z87.19 - Personal history of other diseases of the digestive system (ICD-10) H/O lumpectomy ?Z98.890 - Other specified postprocedural states (ICD-10) History of lumbar fusion (~2014) ?Z98.1 - Arthrodesis status (ICD-10) Hx of appendectomy ?Z90.49 - Acquired absence of other specified parts of digestive tract (ICD-10) Family History (Updated 07/25/23 @ 18:46 by Edward Driscoll MD) Brother Heart disease Pancreatic cancer Mother Heart disease Social History (Updated 07/25/23 @ 18:48 by Edward Driscoll MD) Narrative: He lives in [facility] with his , Samanta Griffin. She is healthcare power of banking attorney. They plan to spend the winter in [place] and [place] and next summer in [place]. Does not smoke. He quit more than 20 years ago. He does not drink alcohol. Code status is DNR What is your current living situation?: I presently have a place to live Problems where you live: no known problems Problems where you live details: none In the past 12 months, utilities in danger of being shut off: no In past 12 months, lack of transportation kept you from medical appts, meetings, work, or getting things needed for daily living: no In the past 12 mos, have been you worried that your food would run out before you had money to buy more?: never true In the past 12 mos, the food you bought just didn't last and you didn't have money to buy more?: never true Highest level of school completed/degree received: high school graduate Smoking Status: Never smoker Do you use any of these nicotine containing products: None How often do you have a drink containing alcohol: never AUDIT-C Alcohol total score: 0 Non-prescribed substance use: denies use Caffeine: Yes How often does anyone, including family, friends and others, physically hurt you: never How often does anyone, including family, friends and others, insult or talk down to you: never How often does anyone, including family, friends and others, threaten you with harm: never How often does anyone, including family, friends and others, scream or curse at you: never service: No Meds Home Medications and Allergies Home Medications Medication Instructions Recorded Confirmed Type No Known Home Medications 07/25/23 07/25/23 History Allergies Allergy/AdvReac Type Severity Reaction Status Date / Time No Known Drug Allergies Allergy Verified 07/25/23 13:20 Exam Narrative: Exam Narrative: He is alert and in no obvious distress. He gives his own history. His skin is warm to touch consistent with his fever. He is mildly diaphoretic. Eyes are normal. Oropharynx normal. Neck is supple without mass or adenopathy. Respirations are clear to auscultation. Breathing is unlabored. Cardiovascular: S1, S2, regular tachycardia. Abdomen is soft. Abdomen has puncture sites from robotic surgery which have minimal erythema, approximately 2 mm around each incision. No tenderness and no drainage. External genitalia normal. Mei catheter draining a concentrated urine. Extremities without edema. Intact peripheral pulses. Good perfusion. Const: Vital Signs, click to edit/add: Vital Signs - 24 hr 07/25/23 13:45 07/25/23 14:31 07/25/23 15:37 Temperature 99.9 F H Pulse Rate 112 H Pulse Rate [Pulse Oximeter] 126 H Pulse Rate [Right Radial] Respiratory Rate 18 Blood Pressure Blood Pressure [Ri ght Arm] Blood Pressure [Ri ght Upper Arm] 109/60 Pulse Oximetry 94 95 96 Oxygen Delivery Me thod Room Air 07/25/23 15:41 07/25/23 15:41 07/25/23 15:45 Temperature 99.9 F H Pulse Rate 108 H 106 H Pulse Rate [Pulse Oximeter] Pulse Rate [Right Radial] Respiratory Rate Blood Pressure 152/93 H Blood Pressure [Ri ght Arm] Blood Pressure [Ri ght Upper Arm] Pulse Oximetry 97 97 Oxygen Delivery Me thod 07/25/23 16:00 07/25/23 16:02 07/25/23 16:03 Temperature Pulse Rate 111 H 105 H 110 H Pulse Rate [Pulse Oximeter] Pulse Rate [Right Radial] Respiratory Rate Blood Pressure 147/88 H Blood Pressure [Ri ght Arm] Blood Pressure [Ri ght Upper Arm] Pulse Oximetry 98 95 96 Oxygen Delivery Me thod Room Air 07/25/23 16:31 07/25/23 17:22 07/25/23 17:41 Temperature 101.4 F H 101.4 F H Pulse Rate Pulse Rate [Pulse Oximeter] Pulse Rate [Right Radial] 115 H Respiratory Rate 20 Blood Pressure 140/90 H Blood Pressure [Ri ght Arm] 145/88 H Blood Pressure [Ri ght Upper Arm] Pulse Oximetry 95 Oxygen Delivery Me thod Room Air Documenting provider has reviewed patient's vital signs: yes Hospitalist - H&P: Result Labs Labs: Short CBC 07/25/23 Range/Units 14:40 WBC 25.12 H* (4.50-11.00) K/uL Hgb 14.9 (13.5-17.5) gm/dL Hct 44.0 (37.0-53.0) % Plt Count 82 L (140-440) K/uL BMP 07/25/23 14:40 Sodium 131 L Potassium 3.7 Chloride 105 Carbon Dioxide 26 BUN 20 Creatinine 0.8 Glucose 218 H Calcium 8.9 Urine 07/25/23 Range/Units 14:20 Urine Color Yellow (Yellow) Urine Appearance Cloudy A (Clear) Urine pH 5.5 (5.0-8.5) Ur Specific [place] >= 1.030 (1.000-1.030) Urine Protein 3+ A (Negative) Urine Glucose (UA) Trace A (Negative) Imaging Chest x-ray: Attestation: I have reviewed the pertinent imaging results. (No acute abnormality) Assessment and Plan Assessment and plan (1) Sepsis: Problem comment: Likely due to urinary infection from prostate surgery and indwelling Mei catheter. Continue piperacillin tazobactam pending cultures. Status: Acute (2) Complicated urinary tract infection: Problem comment: Likely source of sepsis following prostate surgery. Status: Acute (3) Post-operative infection: Problem comment: Consider pelvic imaging if patient is not having uncomplicated recovery with appropriate antibiotics. Status: Acute Plan Patient is admitted the hospital for treatment of sepsis with IV fluids and IV antibiotics. If having a complicated course consult urology and obtained pelvic imaging. Likely will be hospitalized at least 2 days pending cultures and clinical course. Total time spent today is 85 minutes, 55 minutes in coordination of care discussing with patient and other providers ongoing evaluation management of sepsis and urinary tract infection
--- NOTE | 2023-07-25 18:44 | PC.NURSE ---
End of Shift Note: Patient was admitted from the ER approximately an hour ago. He recently had prostate surgery on Jul 17 and now started to have increase weakness and fever is what brought him to the ER. He had a milian placed when he had his surgery. Output is dark in color. He has received 1 liter of fluids so far in the ER. Currently he has vancomycin running. Does complain of abdomen pain but is not requiring pain medication. He was able to eat a regular diet for dinner. Will continue monitor.
[2023-07-25 20:53] LABS: Slide Review Acceptable Review (Acceptable)
[2023-07-25] MEDS: PIPERACILLIN/TAZOBACTAM 3.375 GM in 0.9 % SODIUM CHLORIDE Mini-bag 100 ML IVPB (21:01)
[2023-07-25] MEDS: LACTATED RINGERS 1000 ML 1,000 ML 125 ML IV (22:36)
[2023-07-25] MEDS: OXYCODONE 5 MG TABLET 2.5 MG PO (22:51)
[2023-07-26] VITALS (9 sets, daily range): BP systolic 113–139; BP diastolic 64–84; PULSE 78–96; RESP 16–18; TEMP 36.7–38.5; O2SAT 93–99
[2023-07-26] MEDS: 0.9 % SODIUM CHLORIDE 250 ml IV (02:26)
[2023-07-26] MEDS: PIPERACILLIN/TAZOBACTAM 3.375 GM in 0.9 % SODIUM CHLORIDE Mini-bag 100 ML IVPB ×4 (02:26→20:06)
--- NOTE | 2023-07-26 06:12 | PC.NURSE ---
Patient alert and oriented. Sat up and dangled at bedside. Stood at side of bed for a few minutes. Indwelling catheter patent and draining clear dark mariusz urine. Requested PRN Oxycodone for pain in stomach rated 7/10. Slept after administration. Temp 99.2. All other VSS. ?
[2023-07-26 06:22] LABS: Lactate* 0.9 mmol/L (0.5-1.9)
[2023-07-26 06:45] LABS: Basophils Percent Auto 0.2 % (0.0-3.0); Eosinophils Percent Auto 0.5 % (0.0-7.0); Hematocrit 42.3 % (37.0-53.0); Hemoglobin* 13.9 gm/dL (13.5-17.5); Immature Granulocytes Pct Auto 1.5 %; Lymphocytes Percent Auto 6.2 % (20-44); Mean Corpuscular HGB Conc 33 gm/dL (32-36); Mean Corpuscular Hemoglobin 31 pg (26-34); Mean Corpuscular Volume 93 fL (80-100); Monocytes Percent Auto 8.1 % (0.0-11.0); Neutrophils Percent Auto 83.5 % (42.0-72.0); RDW Coefficient of Variation % 12.6 % (11.5-15.5); Red Blood Count 4.55 m/uL (4.30-5.90); White Blood Count* 20.72 K/uL (4.50-11.00)
[2023-07-26 06:46] LABS: Chloride* 109 mmol/L (96-114)
[2023-07-26 06:47] LABS: Sodium* 131 mmol/L (135-149)
[2023-07-26 06:49] LABS: Creatinine* 0.7 mg/dL (0.5-1.5); Est. Creatinine Clearance* 77.39; Estimated Glomerular Filt Rate 102 ml/min
[2023-07-26 06:50] LABS: Anion Gap -4 mEq/L (7-15); Blood Urea Nitrogen* 13 mg/dL (7-30); Calcium* 8.5 mg/dL (8.4-10.6); Carbon Dioxide* 26 mmol/L (20-32); Glucose* 119 mg/dL (60-115)
[2023-07-26 07:07] LABS: Platelet Count* 46 K/uL (140-440); Slide Review Reflex Yes
[2023-07-26] MEDS: LACTATED RINGERS 1000 ML 1,000 ML 125 ML IV ×3 (07:20→22:55)
[2023-07-26 07:41] LABS: C Reactive Protein* 18.1 mg/dL (0.5-1.0)
[2023-07-26 07:47] LABS: Slide Review Acceptable Review (Acceptable)
[2023-07-26] MEDS: SODIUM CHLORIDE 0.9 % (FLUSH) 10 ML SYRINGE 5 ML IVF (09:50)
[2023-07-26] MEDS: ACETAMINOPHEN 325 MG TABLET 650 MG PO ×2 (12:08→21:07)
--- NOTE | 2023-07-26 12:16 | PM.IMPN1 ---
Progress Note: A&P Assessment and plan (1) Sepsis: Problem details: Likely due to urinary infection from Robot-assisted laparoscopic simple prostatectomy, Robot-assisted bladder stone extraction on 07/17 with postop indwelling Mei catheter Continue piperacillin tazobactam, IV fluid resuscitation Fever and pain management as needed UC and BC pending Exchange Mei catheter on 07/27 Consider pelvic imaging if patient is not having uncomplicated recovery with appropriate antibiotics. Status: Acute (2) Complicated urinary tract infection: Problem details: Likely source of sepsis following prostate surgery. Management as above Status: Acute (3) Thrombocytopenia: Problem details: Acute on chronic, currently 46, down from 82 (74 perioperatively) Not currently on enoxaparin, heparin, aspirin Zosyn can cause thrombocytopenia in rare instances Continue to monitor Status: Chronic Time Spent With Patient Total time spent: Total time spent caring for the patient today was 45 minutes. This includes time spent for the visit reviewing the chart, time spent during the visit, time spent after the visit and documentation and planning in coordination of care. Subjective Date Seen: 07/26/23 Interval history: Patient feeling better than on admission. Voices frustration with medical system. Denies headache or dizziness. Denies chest pain or shortness of breath. Tolerating orals without nausea vomiting. Mild abdominal discomfort persists postoperatively Exam Narrative: Exam Narrative: PHYSICAL EXAM General: Sitting up on edge of bed, conversant, NAD HEENT: Normocephalic, atraumatic, sclera white, EOMI, oral mucosa moist Cardiovascular: RRR, S1S2. No pitting edema Pulmonary: CTA bilaterally without rhonchi, rales, expiratory wheezes. No dyspnea Neurological: Alert, answering questions appropriately, cranial nerves intact, no focal findings Extremities: No gross joint deformity or swelling. AROMI. Neurovascularly intact Skin: Warm, dry. Const: Vital Signs, click to edit/add: Vital Signs - 24 hr 07/25/23 13:45 07/25/23 14:31 07/25/23 15:37 Temperature 99.9 F H Pulse Rate 112 H Pulse Rate [Pulse Oximeter] 126 H Pulse Rate [Right Radial] Respiratory Rate 18 Blood Pressure Blood Pressure [Ri ght Arm] Blood Pressure [Ri ght Upper Arm] 109/60 Pulse Oximetry 94 95 96 Oxygen Delivery Me thod Room Air 07/25/23 15:41 07/25/23 15:41 07/25/23 15:45 Temperature 99.9 F H Pulse Rate 108 H 106 H Pulse Rate [Pulse Oximeter] Pulse Rate [Right Radial] Respiratory Rate Blood Pressure 152/93 H Blood Pressure [Ri ght Arm] Blood Pressure [Ri ght Upper Arm] Pulse Oximetry 97 97 Oxygen Delivery Me thod 07/25/23 16:00 07/25/23 16:02 07/25/23 16:03 Temperature Pulse Rate 111 H 105 H 110 H Pulse Rate [Pulse Oximeter] Pulse Rate [Right Radial] Respiratory Rate Blood Pressure 147/88 H Blood Pressure [Ri ght Arm] Blood Pressure [Ri ght Upper Arm] Pulse Oximetry 98 95 96 Oxygen Delivery Me thod Room Air 07/25/23 16:31 07/25/23 17:22 07/25/23 17:41 Temperature 101.4 F H 101.4 F H Pulse Rate Pulse Rate [Pulse Oximeter] Pulse Rate [Right Radial] 115 H Respiratory Rate 20 Blood Pressure 140/90 H Blood Pressure [Ri ght Arm] 145/88 H Blood Pressure [Ri ght Upper Arm] Pulse Oximetry 95 Oxygen Delivery Me thod Room Air 07/25/23 19:00 07/25/23 22:50 07/26/23 03:00 Temperature 98.8 F 99.2 F 99.2 F Pulse Rate Pulse Rate [Pulse Oximeter] 92 92 91 Pulse Rate [Right Radial] Respiratory Rate 21 22 16 Blood Pressure Blood Pressure [Ri ght Arm] 122/79 124/73 113/64 Blood Pressure [Ri ght Upper Arm] Pulse Oximetry 98 98 93 Oxygen Delivery Me thod Room Air Room Air 07/26/23 12:08 Temperature 101.1 F H Pulse Rate Pulse Rate [Pulse Oximeter] Pulse Rate [Right Radial] Respiratory Rate Blood Pressure Blood Pressure [Ri ght Arm] Blood Pressure [Ri ght Upper Arm] Pulse Oximetry Oxygen Delivery Me thod Labs Labs: Laboratory Results - last 24 hr 07/25/23 07/25/23 07/26/23 14:20 14:40 05:47 WBC 25.12 H* RBC 4.87 Hgb 14.9 Hct 44.0 MCV 90 MCH 31 MCHC 34 RDW Coeff of [place] 12.5 Plt Count 82 L Neut % (Auto) 87.8 H Lymph % (Auto) 4.7 L [place] % (Auto) 6.8 Eos % (Auto) 0.1 Baso % (Auto) 0.2 Neut # (Auto) 22.10 H Lymph # (Auto) 1.20 [place] # (Auto) 1.70 H Eos # (Auto) 0.00 Baso # (Auto) 0.10 Abs Immat Gran (auto) 0.10 Imm/Tot Granulo (auto) 0.4 Diff Slide Review Acceptable Review Sodium 131 L 131 L Potassium 3.7 4.0 Chloride 105 109 Carbon Dioxide 26 26 Anion Gap 0 L -4 L BUN 20 13 Creatinine 0.8 0.7 Estimated Creat Clear 67.94 77.39 Estimated GFR 98 102 Glucose 218 H 119 H Lactate 2.0 H Calcium 8.9 8.5 C-Reactive Protein 14.5 H 18.1 H Urine Color Yellow Urine Appearance Cloudy A Urine pH 5.5 Ur Specific [place] >= 1.030 Urine Protein 3+ A Urine Glucose (UA) Trace A Urine Ketones Trace A Urine Blood 3+ A Urine Nitrite Positive A Urine Bilirubin 1+ A Urine Urobilinogen 0.2 Ur Leukocyte Esterase 1+ A Urine RBC >100 A Urine WBC 25-50 A Ur Squamous Epith Cells Few Urine Bacteria Many A 07/26/23 06:01 WBC 20.72 H RBC 4.55 Hgb 13.9 Hct 42.3 MCV 93 MCH 31 MCHC 33 RDW Coeff of [place] 12.6 Plt Count 46 L* Neut % (Auto) 83.5 H Lymph % (Auto) 6.2 L [place] % (Auto) 8.1 Eos % (Auto) 0.5 Baso % (Auto) 0.2 Neut # (Auto) 17.30 H Lymph # (Auto) 1.30 [place] # (Auto) 1.70 H Eos # (Auto) 0.10 Baso # (Auto) 0.00 Abs Immat Gran (auto) 0.30 Imm/Tot Granulo (auto) 1.5 Diff Slide Review Acceptable Review Sodium Potassium Chloride Carbon Dioxide Anion Gap BUN Creatinine Estimated Creat Clear Estimated GFR Glucose Lactate 0.9 Calcium C-Reactive Protein Urine Color Urine Appearance Urine pH Ur Specific [place] Urine Protein Urine Glucose (UA) Urine Ketones Urine Blood Urine Nitrite Urine Bilirubin Urine Urobilinogen Ur Leukocyte Esterase Urine RBC Urine WBC Ur Squamous Epith Cells Urine Bacteria
[2023-07-26] MEDS: OXYCODONE 5 MG TABLET 2.5 MG PO ×2 (14:23→16:43)
[2023-07-26] MEDS: IBUPROFEN 400 MG TABLET PO ×2 (14:24→23:45)
--- NOTE | 2023-07-26 15:39 | PC.NURSE ---
Please see eMar for medications provided during day shift. Pt spiked a fever of 101.1 this afternoon, treated with tylenol. Recheck of temp 101.3, Motrin provided. Pt showered himself w/IV fluids to . Report to oncoming shift RN.
--- NOTE | 2023-07-26 18:49 | PC.NURSE ---
End of shift [id number]: The patient is up ad abhinav in his room. IV in L hand w/ LR running @ 125 hr. Complained of his chronic Low back pain.. he rated it @ 6/10 upon assessment. PRN 5mg of Oxy was given per parameters 2.5-5mg PRN. The patient then ate dinner and tolerated adequate pain relief and ended up falling asleep. Significant other is visiting this evening. Mei remains in place.. draining light mariusz clear urine. I talked to Dr Driscoll regarding the Mei... plan is to keep it in until his follow up appointment on Monday. Calls appropriately. DEBBIE GARZA RN
[2023-07-27] MEDS: PIPERACILLIN/TAZOBACTAM 3.375 GM in 0.9 % SODIUM CHLORIDE Mini-bag 100 ML IVPB ×3 (01:54→14:27)
[2023-07-27 02:56] VITALS: BP 128/85; PULSE 83; RESP 16; TEMP 36.9; O2SAT 96
[2023-07-27] MEDS: LACTATED RINGERS 1000 ML 1,000 ML 125 ML IV (03:32)
[2023-07-27 06:42] LABS: Lactate* 0.6 mmol/L (0.5-1.9)
--- NOTE | 2023-07-27 06:48 | PC.NURSE ---
: pleasant and cooperative. Indep. Rates back pain 5/10, Tylenol and ibuprofen given, offered relief. VSS. Mei patent and draining light mariusz, sediment noted in urine. ?
[2023-07-27 06:54] LABS: Basophils Percent Auto 0.2 % (0.0-3.0); Eosinophils Percent Auto 1.1 % (0.0-7.0); Hematocrit 39.9 % (37.0-53.0); Hemoglobin* 13.4 gm/dL (13.5-17.5); Immature Granulocytes Pct Auto 0.3 %; Lymphocytes Percent Auto 7.6 % (20-44); Mean Corpuscular HGB Conc 34 gm/dL (32-36); Mean Corpuscular Hemoglobin 31 pg (26-34); Mean Corpuscular Volume 92 fL (80-100); Monocytes Percent Auto 6.9 % (0.0-11.0); Neutrophils Percent Auto 83.9 % (42.0-72.0); Platelet Count* 94 K/uL (140-440); RDW Coefficient of Variation % 12.8 % (11.5-15.5); Red Blood Count 4.33 m/uL (4.30-5.90); White Blood Count* 18.04 K/uL (4.50-11.00)
[2023-07-27 06:56] LABS: Slide Review Reflex No
[2023-07-27 07:21] LABS: Chloride* 107 mmol/L (96-114); Potassium* 3.8 mmol/L (3.6-5.1); Sodium* 138 mmol/L (135-149)
[2023-07-27 07:23] LABS: Creatinine* 0.7 mg/dL (0.5-1.5); Est. Creatinine Clearance* 77.39; Estimated Glomerular Filt Rate 102 ml/min
[2023-07-27 07:24] LABS: Anion Gap 6 mEq/L (7-15); Blood Urea Nitrogen* 12 mg/dL (7-30); Carbon Dioxide* 25 mmol/L (20-32); Glucose* 110 mg/dL (60-115)
[2023-07-27 07:25] LABS: Calcium* 8.8 mg/dL (8.4-10.6)
[2023-07-27 07:39] LABS: C Reactive Protein* 17.9 mg/dL (0.5-1.0)
[2023-07-27 07:45] VITALS: BP 157/102; PULSE 76; RESP 18; TEMP 36.7; O2SAT 97
[2023-07-27] MEDS: OXYCODONE 5 MG TABLET PO (09:40)
[2023-07-27 11:40] VITALS: BP 170/102; PULSE 87; RESP 18; TEMP 36.6; O2SAT 99
[2023-07-27 15:00] VITALS: PULSE 87; RESP 18
--- NOTE | 2023-07-27 15:38 | P.DS_ITS ---
DS: Providers Provider Date Seen: 07/27/23 Date of admission: 07/25/23 20:35 Primary care physician: Not a Local Provider Admitting Clinician: Edward Driscoll MD Attending Physician on discharge: Tanesha Abreu [facility] [place] [place] [facility]ist Date of Discharge: 07/27/23 DS: Diagnosis Discharge Diagnosis (1) Sepsis: Status: Acute Problem details: Likely due to urinary infection from Robot-assisted laparoscopic simple prostatectomy, Robot-assisted bladder stone extraction on 07/17 with postop indwelling Mei catheter. Continued on piperacillin tazobactam, IV fluid resuscitation during hospital course. Transitioned to oral ciprofloxacin at discharge to complete a 14 day course of antibiotics. Urine culture grew Pseudomonas aeruginosa, sensitivities reviewed, including fluoroquinolones. Blood culture NGTD on day of discharge. Recommended to continue with ibuprofen and/or Tylenol as needed for fevers and aches. Will follow-up with surgeon on Monday07/31/2023 for postoperative visit and Mei catheter removal. (2) Complicated urinary tract infection: Status: Acute Problem details: Likely source of sepsis following prostate surgery. Management as above (3) Thrombocytopenia: Status: Chronic Problem details: Acute on chronic, 94 on day of discharge. Did not receive enoxaparin, heparin, aspirin. Follow-up with PCP. DS: Summary Hospital Course Hospital Course: [age] year old male past medical history significant for thrombocytopenia, osteoarthritis, chronic back pain, status post simple prostatectomy was admitted to the medical floor for further management urosepsis. Course of care and details as noted above. Remainder of chronic medical comorbidities were monitored and managed with home medications. Status at Discharge Overall status at discharge: patient is progressing back to baseline Time Spent with Patient Time attestation: Total time spent providing and/or coordinating discharge services: Time spent: Greater than 30 minutes Exam Narrative: Exam Narrative: PHYSICAL EXAM General: Sitting up in hallway chair, conversant, NAD HEENT: Normocephalic, atraumatic, sclera white, EOMI, oral mucosa moist Cardiovascular: RRR Pulmonary: No dyspnea Neurological: Alert, answering questions appropriately, cranial nerves intact, no focal findings Extremities: No gross joint deformity or swelling. AROMI. Neurovascularly intact Skin: Warm, dry. Const: Vital Signs, click to edit/add: Vital Signs - 24 hr 07/26/23 19:30 07/26/23 23:00 07/26/23 23:48 Temperature 98.2 F 98.1 F Pulse Rate [Pulse Oximeter] 87 85 85 Respiratory Rate 18 18 18 Blood Pressure [Ri ght Arm] 118/69 129/84 Pulse Oximetry 96 95 Oxygen Delivery Me thod Room Air Room Air 07/27/23 02:56 07/27/23 07:45 07/27/23 11:40 Temperature 98.5 F 98.1 F 97.8 F Pulse Rate [Pulse Oximeter] 83 76 87 Respiratory Rate 16 18 18 Blood Pressure [Ri ght Arm] 128/85 157/102 H 170/102 H Pulse Oximetry 96 97 99 Oxygen Delivery Me thod Room Air Room Air Room Air DS: Data Data Completed and Pending Labs on day of discharge: Labs from last 24 hours 07/27/23 06:35 WBC 18.04 H RBC 4.33 Hgb 13.4 L Hct 39.9 MCV 92 MCH 31 MCHC 34 RDW Coeff of [place] 12.8 Plt Count 94 L Neut % (Auto) 83.9 H Lymph % (Auto) 7.6 L [place] % (Auto) 6.9 Eos % (Auto) 1.1 Baso % (Auto) 0.2 Neut # (Auto) 15.10 H Lymph # (Auto) 1.40 [place] # (Auto) 1.20 H Eos # (Auto) 0.20 Baso # (Auto) 0.00 Abs Immat Gran (auto) 0.10 Imm/Tot Granulo (auto) 0.3 Sodium 138 Potassium 3.8 Chloride 107 Carbon Dioxide 25 Anion Gap 6 L BUN 12 Creatinine 0.7 Estimated Creat Clear 77.39 Estimated GFR 102 Glucose 110 Lactate 0.6 Calcium 8.8 C-Reactive Protein 17.9 H Preliminary micro results at discharge 07/25/23 15:15 Blood Culture - Preliminary Blood NO GROWTH AFTER 48 HOURS 07/25/23 14:40 Blood Culture - Preliminary Blood NO GROWTH AFTER 48 HOURS Discharge Plan Discharge Disposition: Home, Self-Care Date of Admission: 07/25/23 20:35 Attending Provider on Discharge: Tanesha Abreu Primary Care Provider: Provider,Not a Local Condition: Stable Anticipated Discharge Date/Time: 07/27/23 15:27 Discharge Medications: New ciprofloxacin HCl 500 mg tablet 500 mg PO BID 12 Days Qty: 24 0RF No Action No Known Home Medications Discharge Orders: Discharge Order (Routine); Ordered 07/27/23 Ordered By: Tanesha Abreu Patient Education: Catheter-associated Urinary Tract Infection (GEN) Additional Instructions: Continue to take the oral antibiotic for the next 12 days. Follow-up with your surgeon on Monday as previously scheduled to have the catheter removed. Stay hydrated. Continue to rest. Return to the ED if new or worsening symptoms. Activity Level: Activity as Tolerated Discharge Diet: Regular Follow Up Appointments: Provider,Not a Local [Primary Care Provider] - (Has outpatient follow-up with surgeon on Monday07/31/2022) Forms: [facility] Medical Info Instructions
--- NOTE | 2023-07-27 15:52 | PC.NURSE ---
Pt c/o back discomfort on initial assessment which was treated with oxycodone 5mg. Pt able to be UAL in room and hallway after pain med provided. Eval by Dr. Wallace. Pt received two IV doses of 3.375 Zosyn. He has remained afebrile on day shift. No dysphagia with meds. Pt slept at brief intervals. Mei continues to drain medium mariusz urine with some small flesh colored sediment. Pt will be transitioned to oral antibiotics, recommend ibuprofen or tylenol for back discomfort or fever. Discharge papers pending at shift change per hospitalist. Report to Ann Chinchilla RN for evening shift.
== END 2023-07-27 17:27 | disposition home or self-care (01) | DRG 863 ==
LOC: ED 16:06 → MEDSURG 16:37
PROVIDERS: Admitting Provider Family Medicine; Emergency Provider Family Medicine; Visit Provider Family Medicine
DX: T81.44XA Sepsis following a procedure, initial encounter (principal); N39.0 Urinary tract infection, site not specified; T81.40XA Infection following a procedure, unspecified, initial encounter; B96.5 Pseudomonas (aeruginosa) (mallei) (pseudomallei) as the cause of diseases classified elsewhere; Z90.79 Acquired absence of other genital organ(s); D69.6 Thrombocytopenia, unspecified; R50.9 Fever, unspecified
CPT/HCPCS: 36415; 51701; 71046; 80048; 81001; 83605; 85025; 86140; 87040; 87086; 87186; 99284; A9270; J0743; J2543; J3370; J7030; J7050; J7120

== ENCOUNTER 2024-08-19 08:08 | Outpatient (CLI) | payer MEDICARE, SELFPAY ==
--- OUTSIDE RECORDS SUMMARY | 2024-08-19 08:10 | XMS_ITS | Data Portability ---
Author Organization [facility], [facility] Address [address] [facility], [facility] [address] [place] [address] Care Team Providers Care Firer Glost Kiln Name Role Phone [facility] Primary Care Provider Assessment Encounter Date Assessment Date Assessment LastModified by Organization Details LastModified Time 07/06/2023 07/06/2023 68-year-old male with BPH, bladder stones Reviewed most [place] CT imaging [place] [id number] Not available 07/06/2023 13:27:14 07/31/2023 07/31/2023 68-year-old male status post robotic simple prostatectomy [place] [id number] Not available 07/31/2023 13:36:54 10/18/2023 10/18/2023 68-year-old male 3-month status post robotic simple prostatectomy. Reviewed prostatectomy pathology [place] [id number] Not available 10/18/2023 16:57:48 Plan of Treatment Reminders Order Date Submit Date Provider Last Modified By Organization Details Last Modified Time Details Appointments None recorded. Lab prostate specific Ag, serum or plasma 2022 023 [facility], [address], [address], [place], [address], 11:53:18 Referral None recorded. Procedures None recorded. Surgeries laparoscopy , surgical prostatecto my, simple subtotal, includes robotic assistance (SURG) [address], [address], [place], [address], 08:55:56 Imaging MRI, prostate, w/wo contrast - Needs prostate MRI prior to BPH surgery scheduled for 07/17 023 [facility], [address] [place], [address], 3 09:34:19 Medication Orders cefdinir 300 mg capsule 2022 023 [id number], [address] [place], [place], [phone], 3 10:22:59 trospium 20 mg tablet 2023 024 [facility][id number], [address] [place], [place], [phone], 4 16:16:34 Patient TargetsNo targets recorded. Patient Instructions Encounter Date Encounter Id Patient Instructions Last Modified By Organization Details Last Modified Time 07/06/2023 [id number] 68-year-old male with BPH and bladder stones. Counseled patient that his UTI and bladder stones almost certainly secondary to his BPH. Given the volume of bladder stones it makes sense to do a BPH and bladder stone procedure at the same time with a robotic simple prostatectomy. Particular given his large gland. Discussed surgery in detail including expected perioperative course including an overnight hospital stay, discharged home with a catheter, and postoperative voiding dysfunction while he recovers.Also discussed risks of surgery in general including bleeding, infection, [place], PE, . Patient understands and wishes to proceed. Prior to scheduling the robotic simple prostatectomy, we will rule out prostate cancer, he does not remember having recent PSA screenings. We will obtain a PSA today, with the understanding that is likely to be elevated in the setting of an infection. However we will also get a prostate MRI. As long as no suspicious lesions on MRI, we will proceed with the robotic simple prostatectomy. [email or web address] Not available 07/06/2023 13:28:52 07/31/2023 [id number] 68-year-old male status post robotic simple prostatectomy Reviewed pathology which was benign Counseled that he may have some stress urinary incontinence after the catheter removal today for the next couple weeks. Counseled over the next couple weeks he can also discontinue his tamsulosin and see how his voiding goes without the medication. We will plan to follow-up in 3 months [email or web address] Not available 07/31/2023 13:37:33 10/18/2023 [id number] 68-year-old male 3-month status post robotic simple prostatectomy. Patient doing well overall. Will start trospium 20 mg twice daily for his bladder overactivity. Follow-up in 6 months. [email or web address] Not available 10/18/2023 16:58:00 Reason for Referral None Reported. Results Created Date Observation Date Name Description Value Unit Range Abnormal Flag Note LastModifiedBy Organization Detail LastModifiedTime 07/06/2007/06/2023 PSA, TOTAL , SCREE N PSA, total 4.62 NG/mL 0.00-4 .00 high This lab resul t is being provi ded to you and your provi chris at the same time [facility] with the Cent[facility] Cures Act. Your provi chris may not have had time to revie w and make recom menda tions based on the resul t. Pleyoana e allow up to one week for provi chris revie w. Not Available [facility] [address] [facility] [address], [place], [address], 07/06/2023 11:53:18 07/08/2007/07/2023 MRI, prost ate, w/wo contr ast No observ ation record ed. [email or web address] Juwan Koch MD [address] [place], [address], 07/10/2023 08:24:22 07/08/2007/07/2023 MRI, prost ate, w/wo contr ast No observ ation record ed. [email or web address] [facility] [address] [place], [address], 07/10/2023 08:28:31 Result Notes None recorded. 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 24795707 Active 2022 COBY Watkins - [facility] 10/24/202 3 09:27:05 Hypertensive disorder 09666654 Active 2022 Price Meath null, [facility] 3 09:27:24 Hyperlipidemia 78215344 Active 2022 Price Meath null, [facility] 3 09:27:40 Hearing loss 64659502 Active 2022 Price Meath null, [facility] 3 09:27:54 Polyp of colon 50450429 Active 2022 Price Meath null, [facility] 3 09:28:05 Spinal stenosis of lumbar region 51935065 Active 2022 Price Meath null, [facility] 3 09:29:07 Dementia 33191478 Active 2022 Price Meath null, [facility] 3 09:29:17 Adjustment disorder 29287513 Active 2022 Price Meath null, [facility] 3 09:29:32 Benign prostatic hyperplasia with outflow obstruction 752218606 Active 2022 PANCHITO BARON MD [address] [facility],[address] [place] [address], [phone], [facility] 3 09:54:58 Overactive urinary bladder 342070946 Active 2023 PANCHITO BARON MD [address] [facility],[address] [place] [address], [phone], [facility] 4 16:11:39 Problem Notes None recorded. Procedures Surgical History Date Name Laterality Status Provider Name and Address Organization Details Recorded Time 10/18/19 24 COMPLEX VISIT completed PANCHITO BARON MD [address] [facility],[address] [place] [address], [phone], [facility] 10/18/2023 16:57:43 10/18/19 24 Bladder Scan completed Stella May[place] [facility] 10/18/2023 16:07:55 07/31/20 Mei Catheter Removal completed Stella [place] [facility] 07/31/2023 11:56:22 07/06/20 23 CystoscopyMale completed PANCHITO BARON MD [address] [facility] [address], [place], [address], [facility] 07/06/2023 13:26:56 07/06/20 23 Blood Draw/BENCH ASSEMBLER/PSA RESULTS completed Evelyn Guardado [facility] 07/06/2023 10:02:45 09/11/19 21 colonoscopy completed Jaime Kelly [facility] 07/06/2023 09:30:46 01/08/20 16 Colonoscopy completed Price Combs [facility] 07/04/2023 09:30:10 Imaging Results Imaging Date Name Status LastModified by Organiz ation Details LastModified Time 07/07/2023 MRI, prostate, w/wo contrast completed [email or web address] Juwan Koch MD [address] [place], [address], 07/10/2023 08:24:22 07/07/2023 MRI, prostate, w/wo contrast completed [email or web address] [facility] [address] [place], [address], 07/10/2023 08:28:31 Procedure Notes None recorded. Medical Equipment None Reported. Allergies No known drug allergies Medications Name Sig Start Date Stop Date Status Note LastModified by Organization Details LastModified Time amoxicillin 500 mg capsule TAKE 1 THREE TIMES DAILY BY MOUTH UNTIL GONE 07/06 completed Not Available Not Available Not Available hydrocodone 5 mg-acetamino phen 325 mg tablet TAKE 1 TABLET BY MOUTH EVERY 6 HOURS NEEDED FOR PAIN 07/18 completed Not Available Not Available Not Available ciprofloxaci n 500 mg tablet TAKE 1 TABLET BY MOUTH TWICE DAILY FOR 12 DAYS 10/18 completed Not Available Not Available Not Available oxycodone-ac etaminophen 5 mg-325 mg tablet TAKE 1 OR 2 TABLETS BY MOUTH EVERY 4 TO 6 HOURS NEEDED FOR PAIN 07/18 completed Not Available Not Available Not Available tamsulosin 0.4 mg capsule Take 1 capsule every day by oral route. 10/18 completed Not Available Not Available Not Available cefdinir 300 mg capsule TAKE 1 CAPSULE BY MOUTH EVERY 12 HOURS FOR 3 DAYS 07/18 completed Not Available Not Available Not Available oxycodone 5 mg tablet 10/18 completed Not Available Not Available Not Available trospium 20 mg tablet Take 1 tablet twice a day by oral route for 90 days. active Not Available Not Available No t Available Aleve active Not Available Not Availa ble Not Available Vitals Date Recorded Body height Body mass index (BMI) Body weight Provider Name and Address Organization Details Last Updated DateTime 07/06/2023 170.18 cm 31.3 kg/m2 [address] [facility] 07/06/2023 09:29:31 Date Recorded Body height Body mass index (BMI) Body weight Provider Name and Address Organization Details Last Updated DateTime 07/31/2023 170.18 cm 31.3 kg/m2 15222.47 g Stella May[place] [facility] 07/31/2023 11:45:21 Date Recorded Body height Body mass index (BMI) Body weight Provider Name and Address Organization Details Last Updated DateTime 10/18/2023 170.18 cm 31.3 kg/m2 52508.47 g Stella May[place] [facility] 10/18/2023 15:43:34 Social History Question Answer Notes LastModified by Organizat ion Details LastModified Time Tobacco Smoking Status [facility]2023 09:30:36 What Is Your Level Of Alcohol Consumption? None [email or web address] Information not available 07/06/2023 What Is Your Level Of Caffeine Consumption? Moderate [email or web address] Information not available 07/06/2023 When Did You Quit Smoking? 6-10yearssinc elastcigarett e [email or web address] Information not available 07/06/2023 Race Unknown Information not available 07/31/2023 Preferred Language [email or web address] Information not available 07/31/2023 What Was The Date Of Your Most Recent Tobacco Screening? 10/18/2023 Information not available 10/18/2023 What Is Your Relationship Status? Unknown Information not available 10/18/2023 Do You Use Any Illicit Or Recreational Drugs? No [email or web address] Information not available 07/06/2023 Has Tobacco Cessation Counseling Been Provided? Yes Information not available 07/31/2023 On What Date Was Tobacco Cessation Counseling Provided? 10/18/2023 Information not available 10/18/2023 Do You Or Have You Ever Used Any Other Forms Of Tobacco Or Nicotine? No [email or web address] Information not available 07/06/2023 Sex: Unknown Functional Status None recorded. Mental Status None recorded. Family History Nothing Reported. Medical History Condition Response Other N High Blood Pressure N Kidney Stones N Depression N Sexually Transmitted Infection N Cancer N Bleeding Disorder N Lung Disease N GERD/Acid Reflux N High Cholesterol N Diabetes N Heart Disease N Immunizations Vaccine Type Date Status Provider Name and Address Organization Details Recorded Time COVID-19, mRNA, LNP-S, PF, 30 mcg/0.3 mL dose 01/21/2021 completed Jaime tee [facility] 07/06/2023 09:29:35 COVID-19, mRNA, LNP-S, PF, 30 mcg/0.3 mL dose 02/12/2021 completed Jaime tee [facility] 07/06/2023 09:29:35 COVID-19, mRNA, LNP-S, PF, 30 mcg/0.3 mL dose 09/01/2021 completed Jaime tee [facility] 07/06/2023 09:29:36 Tdap 07/31/2015 completed Jaime tee [facility] 07/06/2023 09:29:36 Td (adult), 2 Lf tetanus toxoid, preservative free, adsorbed 02/07/2006 completed Jaime ete [facility] 07/06/2023 09:29:36 Past Encounters Encounter ID Performer Location Encounter Start Date Encounter Closed Date Diagnosis/Indication Diagnosis SNOMED-CT Code Diagnosis ICD10 Code [id number] [facility] [address] [place] [phone] 07/06/2023 09:08:24 07/06/2023 14:12:38 Screening for malignant neoplasm of prostate 563521430 Z12.5 Benign pro static hyperplasia with outflow obstruction 170555739 N40.1 [id number] PANCHITO BARON MD [facility] [address] [place] [phone] 07/31/2023 11:37:35 07/31/2023 14:28:50 [id number] PANCHITO BARON MD [facility] [address] [place] [address],[address] [place] [address] 10/18/2023 14:45:06 10/18/2023 16:59:53 Overactive urinary bladder 930971818 N32.81 Health Concerns Section Related Observation LastModified by Organization Detai ls LastModified Time None Recorded Concern Status LastModified by Organization Details LastModified Time None Recorded Advance Directives Directive None Recorded Payers Encounter Date Sequence Insurance Name Policy Number Policy Swan Covered Member ID Swan Member ID Guarantor Name 07/06/2023 1 [facility] (MEDICARE REPLACEMENT/A DVANTAGE - PPO) [id number] Quinton Daniel Milesmun [id number] Quinton Daniel Milesmun 07/31/2023 1 [facility] (MEDICARE REPLACEMENT/A DVANTAGE - PPO) [id number] Quinton Aquinomun [id number] Quinton C Milesmun 10/18/2023 1 [employer] - DOS ON OR AFTER 19 (MEDICARE REPLACEMENT/A DVANTAGE - HMO) [id number] Quinton Daniel Milesmun [id number] Quinton C Shireen Notes Date Note Type Note Provider Name and Address Organization Details Recorded Time 07/06/2023 text/html 68-year-old male presents for evaluation of BPH.Patient reports having weak stream and sensation of incomplete bladder emptying for many years. He reports passage of multiple bladder stones over the last 10 years, and at times he says it seems like he is peeing peeing sand. Recently, he started having severe urge urinary incontinence to the point where he has to wear a diaper. He was diagnosed with urinary tract infection and started on cefdinir 300 mg twice daily by his primary care provider. He reports gross hematuria on and off for many years. He does have a 15-year smoking history, but he quit 25 years ago. He had a CT in [place] which reported numerous bladder stones PANCHITO BARON MD [address] [facility],[address], [place], [address], [facility] 07/07/2023 13:42:53 07/31/2023 text/html 68-year-old male presents for follow-up status post robotic simple prostatectomy with bladder stone extraction 07/17/2023. Postoperatively, patient did develop a urinary tract infection and is currently completing a 12-day course of Cipro. Otherwise, he reports has been recovering well. His incisions are healing well. PANCHITO BARON MD [address] [place] [address],[address], [place], [address], [facility] 07/31/2023 13:37:40 10/18/2023 text/html 68-year-old male presents for 3-month follow-up after robotic simple prostatectomy. Patient reports he is doing very well. Is having some bladder overactivity with occasional urge incontinence, but this is still improving every week. PANCHITO BARON MD [address] [place] [address],[address], [place], [address], [facility] 10/18/2023 16:58:08
--- OUTSIDE RECORDS SUMMARY | 2024-08-19 08:10 | XMS_ITS | Encounter Summary ---
Author Organization [facility] Address [facility] [place] [address] Care Team Providers Care Lurer Name Role Phone Clinic - [facility] Primary Care Provider No Ref-Primary, Physician Primary Care Provider Reason for Visit * Reason Onset Date Comments Call To Schedule Appointment 09/20/2018 Tri ed to leave message for DEXA wrong # Encounter Details Date Type Department Care Team (Late st Contact Info) Description 09/20/[address] [place] [address] Fortino Lincoln MD [facility] [address] [place] [address] Call To Schedule Appointment (Tried to leave message for DEXA wrong #) Social History Tobacco Use Types Packs/Day Years Used Date Smoking Tobacco: Former Cigarettes Q uit: 09/11/1999 Sex and Gender Information Value Date Recorded Sex Assigned at Not on file Legal Sex Male 4:22 AM [employer]OR[employer] HELPER Gender Identity Not on file Sexual Orientation Not on file documented as of this encounter Miscellaneous Notes * Telephone Encounter - Dari Renteria - 09/20/2018 1:16 PM CST Tried to leave message for DEXA wrong # RAIL HELPER documented in this encounter Plan of Treatment Not on file documented as of this encounter Visit Diagnoses Not on filedocumented in this encounter Care Teams Lurer Relationship Specialty Start Date End Date Clinic - [address] [address] PCP - General Internal Medicine 10/03/18 07/06/23 No Ref-Primary, Physician PCP - General 07/07/23 documented as of this encounter
--- OUTSIDE RECORDS SUMMARY | 2024-08-19 08:10 | XMS_ITS | Referral Summary ---
Author Organization [facility] Address [address] [place] [id number] Care Team Providers Care Gettering Operator Name Role Phone No Ref-Primary, Physician Primary Care Provider Allergies No known active allergies Medications senna-docusate (SENOKOT-S/PERIC OLACE) 8.6-50 MG tabletIndication s:BPH with urinary obstruction Take 1-2 tablets by mouth 2 times daily Take while on oral narcotics to prevent or treat constipation. 30 tablet 3 Active acetaminophen (TYLENOL) 325 MG tabletIndication s:BPH with urinary obstruction Take 1-2 tablets (325-650 mg) by mouth every 4 hours as needed for mild pain 3 Active bacitracin 500 UNIT/GM external ointmentIndicati ons:BPH with urinary obstruction Apply topically 3 times daily as needed for wound care Apply to tip of penis while milian catheter is present. 3 Active oxyCODONE (ROXICODONE) 5 MG tabletIndication s:BPH with urinary obstruction Take 1 tablet (5 mg) by mouth every 6 hours as needed for moderate to severe pain 4 tablet 3 Active Active Problems Problem Noted Date Diagnosed Date BPH with urinary obstruction 07/17/2023 Lumbar stenosis 08/04/2015 Annular tear of lumbar disc Social History Tobacco Use Types Packs/Day Years Used Date Smoking Tobacco: Former Cigarettes Q uit: 09/11/1999 Tobacco Cessation:Counseling Given: Not Answered Alcohol Use Standard Drinks/Week Comments Never 0 (1 standard drink = 0.6 oz pur e alcohol) Adolescent Education Answer Date Record ed Getting School Help Needed Not on file 07/14 Sex and Gender Information Value Date Recorded Sex Assigned at Not on file Legal Sex Male 4:22 AM COMMODITY DIRECTOR Gender Identity Not on file Sexual Orientation Not on file Last Filed Vital Signs Vital Sign Reading Time Taken Comments Blood Pressure 136/71 07/18/2023 7:00 AM COMMODITY DIRECTOR Pulse 94 07/18/2023 7:00 AM COMMODITY DIRECTOR Temperature 36.6 C (97.8 F) 07/18/2023 8:57 AM COMMODITY DIRECTOR Respiratory Rate 18 07/18/2023 7:00 AM COMMODITY DIRECTOR Oxygen Saturation 96% 07/18/2023 7:00 AM COMMODITY DIRECTOR Inhaled Oxygen Concentration - - Weight 95.3 kg (210 lb 3.2 oz) 07/17/2023 11:39 AM COMMODITY DIRECTOR Height 170.2 cm (5' 7) 07/17/2023 11:39 AM COMMODITY DIRECTOR Body Mass Index 32.92 07/17/2023 11:39 AM COMMODITY DIRECTOR Plan of Treatment Not on file Medical Devices Implanted Type Area Senior [employer] Device Identifier Shelf Expiration Date Model / Serial / Lot Graft Bone Infuse Small [id number] Implanted:Qty : 1 on 08/04/2015 Bone/Tissue/ Biologic N/A: Spine Lumbar [employer] 07/11/2017 [id number] / / [id number] Tissue Shaped Strip [id number] [facility] - 06-0100-200 - [id number] Implanted:Qty : 1 on 08/05/2015 Bone/Tissue/ Biologic N/A: Spine Lumbar [employer] 04/04/2017 0 / [id number] / [id number] Tissue Amnion Patch 2 X 2 [id number] - [id number] Implanted:Qty : 1 on 08/05/2015 Bone/Tissue/ Biologic Bilateral : Spine Lumbar [employer]EX 04/15/2018 [id number] / [id number] / [id number] Graft Bone Infuse Medium [id number] Implanted:Qty : 1 on 08/05/2015 Bone/Tissue/ Biologic N/A: Spine Lumbar [employer] 11/09/2016 [id number] / / [id number] Tissue Amnion Patch 2 X 2 [id number] - [id number] Implanted:Qty : 1 on 09/08/2016 Bone/Tissue/ Biologic Right: Spine Lumbar VIVEX 02/16/2021 [id number] / VARSITY BASEBALL [id number] / N/A Cage Lateral Spacer 7deg [id number] - Sna Implanted:Qty : 1 on 08/04/2015 Metallic Hardware/Anc hor N/A: Spine Lumbar [employer], 08/04/2016 [id number] / NA / NA Screw Facet Assy 4.5mm X 40mm - [id number] Implanted:Qty : 2 on 08/05/2015 Metallic Hardware/Anc hor N/A: Spine Lumbar [employer] [id number] / / NA Description:posterior Screw Polyaxial Solco Alexandra 6.5x45mm - [id number] Implanted:Qty : 1 on 08/05/2015 Metallic Hardware/Anc hor N/A: Spine Lumbar [facility] [id number] / / NA Description:posterior Screw Set Solco [id number] Implanted:Qty : 1 on 08/05/2015 Metallic Hardware/Anc hor N/A: Spine Lumbar [facility] [id number] / / NA Description:posterior Device Spf-Plus Mini Mesh Cathode 60 - 10-1398m Implanted:Qty : 1 on 08/05/2015 Neurology device Bilateral : Spine Lumbar [employer] 12/18/2016 10-1398M / / [id number] Spinal Hardware Cage Lateral Spacer [id number] Implanted:Qty : 1 on 08/04/2015 N/A: Spine Lumbar [employer], 08/04/2016 [id number] / NA / NA [place] Mi Plate 14mm Implanted:Qty : 1 on 08/04/2015 Bilateral : Spine Lumbar K2M 08/04/2016 [id number] / NA / NA [place] Mi Screw 56mm Bc Implanted:Qty : 4 on 08/04/2015 Bilateral : Spine Lumbar K2M 08/04/2016 [id number] B / NA / NA [place] Mi Screw 60mm Bc Implanted:Qty : 4 on 08/04/2015 Bilateral : Spine Lumbar K2M 08/04/2016 [id number] B / NA / NA [place] Mi Plate 12mm Implanted:Qty : 1 on 08/04/2015 Bilateral : Spine Lumbar K2M 08/04/2016 [id number] / NA / NA Solco Alexandra Smooth Jer 5.5 X 90mm Implanted:Qty : 1 on 08/05/2015 Bilateral : Spine Lumbar [facility] [id number] / / NA Description:posterior Procedures Procedure Name Priority Date/Time Associated Diagnosis Comments BASIC METABOLIC PANEL Routine 07/18/2023 5:34 AM COMMODITY DIRECTOR from Last 3 Months or Most Recently Relevant to Health Maintenance Results * (ABNORMAL) Basic metabolic panel (07/18/2023 5:34 AM COMMODITY DIRECTOR) Sodium 138 135 - 145 mmol/L 07/18/2023 6:15 AM [facility] Comment:Reference intervals for this test were updated on 06/06/2023 to more accurately reflect our healthy population. There may be differences in the flagging of prior results with similar values performed with this method. Interpretation of those prior results can be made in the context of the updated reference intervals. Potassium 4.5 3.4 - 5.3 mmol/L 07/18/2023 6:15 AM [facility] Chloride 103 98 - 107 mmol/L 07/18/2023 6:15 AM [facility] Carbon Dioxide (CO2) 26 22 - 29 mmol/L 07/18/2023 6:15 AM [facility] Anion Gap 9 7 - 15 mmol/L 07/18/2023 6:15 AM [facility] Urea Nitrogen 18.2 8.0 - 23.0 mg/dL 07/18/2023 6:15 AM [facility] Creatinine 0.94 0.67 - 1.17 mg/dL 07/18/2023 6:15 AM [facility] GFR Estimate 89 >60 mL/min/1. 73m2 07/18/2023 6:15 AM [facility] Calcium 8.7(L) 8.8 - 10.2 mg/dL 07/18/2023 6:15 AM [facility] Glucose 119(H) 70 - 99 mg/dL 07/18/2023 6:15 AM [facility] Blood STRUCTURE OF LEFT UPPER LIMB / Unknown Venipuncture / Unknown 07/18/2023 5:34 AM COMMODITY DIRECTOR 07/18/2023 5:37 AM COMMODITY DIRECTOR us Jamison Klein MD LAB - BLOOD ORDERABLES Stephenie dorsey Result [facility] [address] [place] [id number] [phone] from Last 3 Months or Most Recently Relevant to Health Maintenance Insurance [employer] MEDICARE ADVANTAGE [employer] MEDICARE ADVANTAGE Advance Directives For more information, please contact: [phone] * Full Code (Latest Code Status on File) Date Activated Date Inactivated Comments 07/17/2023 3:52 PM 07/18/2023 4:51 PM All basic an d advanced life-sustaining interventions are performed as appropriate Question Answer Comments Code status determined by: Discussion with patie nt/ legal decision maker Care Teams Gettering Operator Relationship Specialty Start Date End Date No Ref-Primary, Physician PCP - General 07/07/23
--- OUTSIDE RECORDS SUMMARY | 2024-08-19 08:10 | XMS_ITS | Clinical Summary ---
Author Organization [facility] Address [address] [place] [address] Care Team Providers Care Breakdown Person Name Role Phone No Ref-Primary, Physician Primary [...] on file Legal Sex Male 4:22 AM DISPLAY DESIGNER OUTSIDE Gender Identity Not on file Sexual Orientation Not on file Last Filed Vital Signs Vital Sign Reading Time Taken Comments Blood Pressure 136/71 07/18/2023 7:00 AM DISPLAY DESIGNER OUTSIDE Pulse 94 07/18/2023 7:00 AM DISPLAY DESIGNER OUTSIDE Temperature 36.6 C (97.8 F) 07/18/2023 8:57 AM DISPLAY DESIGNER OUTSIDE Respiratory Rate 18 07/18/2023 7:00 AM DISPLAY DESIGNER OUTSIDE Oxygen Saturation 96% 07/18/2023 7:00 AM DISPLAY DESIGNER OUTSIDE Inhaled Oxygen Concentration - - Weight 95.3 kg (210 lb 3.2 oz) 07/17/2023 11:39 AM DISPLAY DESIGNER OUTSIDE Height 170.2 cm (5' 7) 07/17/2023 11:39 AM DISPLAY DESIGNER OUTSIDE Body Mass Index 32.92 07/17/2023 11:39 AM DISPLAY DESIGNER OUTSIDE Plan of Treatment Health Maintenance Due Date Last Done Comments ADVANCE CARE PLANNING 1955 ANNUAL REVIEW OF HM ORDERS 1957 CT COLONOGRAPHY 1957 FIT 1957 FLEX SIG 1957 sDNA (Cologuard) 1957 HEPATITIS C SCREENING 1975 LIPID 1997 ZOSTER IMMUNIZATION (1 of 2) 2007 LUNG CANCER SCREENING 12/20/2012 12/21/2011 FALL RISK ASSESSMENT 2022 MEDICARE ANNUAL WELLNESS VISIT 2022 08/26/2020 Pneumococcal Vaccine: 65+ Years (1 of 1 - PCV) 2022 PHQ-2 (once per calendar year) 2023 COVID-19 Vaccine (4 - 2023-2 5 season) 2024 09/01/2021, 02/12/2021, 01/21/2021 INFLUENZA VACCINE (#1) 2024 DTAP/TDAP/TD IMMUNIZATION (2 - Td or Tdap) 07/31/2025 07/31/2015, 02/14/2006, 02/07/2006 GLUCOSE 07/18/2026 07/18/2023, 07/17/2023 COLONOSCOPY 09/10/2030 09/10/2020, 01/08/2016 COLORECTAL CANCER SCREENING 09/10/2030 RSV VACCINE (1 - 1-dose 75+ series) 2032 HPV IMMUNIZATION Aged Out No longer e ligible based on patient's age to complete this topic MENINGITIS IMMUNIZATION Aged Out No l onger eligible based on patient's age to complete this topic RSV MONOCLONAL ANTIBODY Aged Out No l onger eligible based on patient's age to complete this topic Medical Devices Implanted Type Area X Ray Inspector Device Identifier Shelf Expiration Date Model / Serial / Lot Graft Bone Infuse Small [id number] Implanted:Qty : 1 on 08/04/2015 Bone/Tissue/ Biologic N/A: Spine Lumbar [employer] 07/11/2017 [id number] / / [id number] Tissue Shaped Strip [id number] 20 - -200 - [id number] Implanted:Qty : 1 on 08/05/2015 Bone/Tissue/ Biologic N/A: Spine Lumbar [employer] 04/04/2017 0 / [id number] / [id number] Tissue Amnion Patch 2 X 2 [id number] - [id number] Implanted:Qty : 1 on 08/05/2015 Bone/Tissue/ Biologic Bilateral : Spine Lumbar VIVEX 04/15/2018 [id number] / [id number] / [id number] Graft Bone Infuse Medium [id number] Implanted:Qty : 1 on 08/05/2015 Bone/Tissue/ Biologic N/A: Spine Lumbar [employer] 11/09/2016 [id number] / / [id number] Tissue Amnion Patch 2 X 2 [id number] - [id number] Implanted:Qty : 1 on 09/08/2016 Bone/Tissue/ Biologic Right: Spine Lumbar VIVEX 02/16/2021 [id number] / [id number] / N/A Cage Lateral Spacer 7deg [id number] - Sna Implanted:Qty : 1 on 08/04/2015 Metallic Hardware/Anc hor N/A: Spine Lumbar [employer], 08/04/2016 [id number] / NA / NA Screw Facet Assy 4.5mm X 40mm - [id number] Implanted:Qty : 2 on 08/05/2015 Metallic Hardware/Anc hor N/A: Spine Lumbar [employer] [id number] / / NA Description:posterior Screw Polyaxial Solco Alexandra 6.5x45mm - [id number] Implanted:Qty : 1 on 08/05/2015 Metallic Hardware/Anc hor N/A: Spine Lumbar [facility] [id number] / / NA Description:posterior Screw Set Solco [id number] Implanted:Qty : 1 on 08/05/2015 Metallic Hardware/Anc hor N/A: Spine Lumbar [facility] [id number] / / NA Description:posterior Device Spf-Plus Mini Mesh Cathode 60 - 10-1398m Implanted:Qty : 1 on 08/05/2015 Neurology device Bilateral : Spine Lumbar [employer] 12/18/2016 10-1398M / / [id number] Spinal Hardware Cage Lateral Spacer [id number] Implanted:Qty : 1 on 08/04/2015 N/A: Spine Lumbar [employer], 08/04/2016 [id number] / NA / NA [place] Mi Plate 14mm Implanted:Qty : 1 on 08/04/2015 Bilateral : Spine Lumbar K2M 08/04/2016 [id number] / NA / NA [place] Mi Screw 56mm Bc Implanted:Qty : 4 on 08/04/2015 Bilateral : Spine Lumbar K2M 08/04/2016 [id number] B / NA / NA [place] Mi Screw 60mm Bc Implanted:Qty : 4 on 08/04/2015 Bilateral : Spine Lumbar K2M 08/04/2016 [id number] B / NA / NA [place] Mi Plate 12mm Implanted:Qty : 1 on 08/04/2015 Bilateral : Spine Lumbar K2M 08/04/2016 [id number] / NA / NA Solco Alexandra Smooth Jer 5.5 X 90mm Implanted:Qty : 1 on 08/05/2015 Bilateral : Spine Lumbar [facility] [id number] / / NA Description:posterior Procedures Procedure Name Priority Date/Time Associated Diagnosis Comments BASIC METABOLIC PANEL Routine 07/18/2023 5:34 AM DISPLAY DESIGNER OUTSIDE from Last 3 Months or Most Recently Relevant to Health Maintenance Results * (ABNORMAL) Basic metabolic panel (07/18/2023 5:34 AM DISPLAY DESIGNER OUTSIDE) Sodium 138 135 - 145 mmol/L 07/18/2023 6:15 AM DISPLAY DESIGNER OUTSIDE [facility] Comment:Reference intervals for this test were updated on 06/06/2023 to more accurately reflect our healthy population. There may be differences in the flagging of prior results with similar values performed with this method. Interpretation of those prior results can be made in the context of the updated reference intervals. Potassium 4.5 3.4 - 5.3 mmol/L 07/18/2023 6:15 AM [facility] Chloride 103 98 - 107 mmol/L 07/18/2023 6:15 AM [facility] Carbon Dioxide (CO2) 26 22 - 29 mmol/L 07/18/2023 6:15 AM [facility] Anion Gap 9 7 - 15 mmol/L 07/18/2023 6:15 AM [facility] Urea Nitrogen 18.2 8.0 - 23.0 mg/dL 07/18/2023 6:15 AM [facility] Creatinine 0.94 0.67 - 1.17 mg/dL 07/18/2023 6:15 AM [facility] GFR Estimate 89 >60 mL/min/1. 73m2 07/18/2023 6:15 AM [facility] Calcium 8.7(L) 8.8 - 10.2 mg/dL 07/18/2023 6:15 AM [facility] Glucose 119(H) 70 - 99 mg/dL 07/18/2023 6:15 AM [facility] Blood STRUCTURE OF LEFT UPPER LIMB / Unknown Venipuncture / Unknown 07/18/2023 5:34 AM DISPLAY DESIGNER OUTSIDE 07/18/2023 5:37 AM DISPLAY DESIGNER OUTSIDE Jamison Klein MD LAB - BLOOD ORDERABLES Stephenie dorsey Result [facility] [address] [place] [address], [facility] [phone] from Last 3 Months or Most Recently Relevant to Health Maintenance Insurance [facility] MEDICARE ADVANTAGE [employer] MEDICARE ADVANTAGE Advance Directives For more information, please contact: [phone] * Full Code (Latest Code Status on File) Date Activated Date Inactivated Comments 07/17/2023 3:52 PM 07/18/2023 4:51 PM All basic an d advanced life-sustaining interventions are performed as appropriate Question Answer Comments Code status determined by: Discussion with sue nt/ legal decision maker Care Teams Breakdown Person Relationship Specialty Start Date End Date No Ref-Primary, Physician PCP - General 07/07/23
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
--- OUTSIDE RECORDS SUMMARY | 2024-08-19 08:10 | XMS_ITS | Encounter Summary ---
Author Organization [facility] Address [address] [place] [address] Care Team Providers Care Facility Planner Name Role Phone [facility] Primary Care Provider No Ref-Primary, Physician Primary Care Provider Reason for Visit * Reason Onset Date Comments Results 10/08/2018 dexa scan and re port mailed to Dr. Estefanía [facility]ales [facility] [address] [place] [address] pn Encounter Details Date Type Department Care Team (Late st Contact Info) Description 10/08/[address] [place] [address] [facility] [address] [place] [address] Results (dexa scan and report mailed to Dr. 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 Estefanía Vidales [address] [place] [address] pn CLE PAINTER documented in this encounter Plan of Treatment Not on file documented as of this encounter Visit Diagnoses Not on filedocumented in this encounter Care Teams Facility Planner Relationship Specialty Start Date End Date [facility] - [address] [address] PCP - General Internal Medicine 10/03/18 07/06/23 No Ref-Primary, Physician PCP - General 07/07/23 documented as of this encounter
--- NOTE | 2024-08-19 08:15 | MR_ITS ---
[address] [address] Phone:?[phone] Fax:?[phone] Referring Physician Information: Eduard Cobb M.D. [address] [facility] [address] Phone:?[phone] Fax:?[phone] Patient:Kirsty Iyer D.O.B:?1955 Sex:?Male Phone:?[phone] [facility] MRN:?[id number] Exam Date:?08/19/2024 EXAM: MRI EXAMINATION OF THE RIGHT KNEE CLINICAL INFORMATION: Right knee pain. No specific injury. No history of surgery to this area. Evaluate possible medial meniscus tear. TECHNICAL INFORMATION: Coronal PD and STIR. Axial PD and T2 fat saturation. Sagittal PD and PD fat saturation images acquired. No prior studies for comparison. INTERPRETATION: Bones: Localized mild subchondral edema signal involves the medial femoral condyle. Minimal subchondral cystic changes of the patella. No occult fracture or AVN. No other abnormal bone marrow edema pattern is identified. Ligaments and tendons: Residua of a chronic sprain injury with mild irregularity, thickening and signal heterogeneity of the mid to proximal portion of the medial collateral ligament. The iliotibial band, fibular collateral ligament, biceps femoris tendon and popliteus tendon all are intact. The anterior cruciate ligament is intact without acute sprain or tear. The posterior cruciate ligament is intact. Extensor Mechanism: The patellar and quadriceps tendons are intact. Prominent abnormal thickening with infiltrative fluid and edema signal within the subcutaneous tissues tissues superficial to the proximal two thirds of the patellar tendon. The medial and lateral retinacula are intact. Knee Joint: There is a moderately large knee joint effusion. No discrete popliteal cyst. Series 4 image 21 as well as series 8 image 15 and series 7 image 15 demonstrate a 1.1 cm loose body within the joint situated anterolateral to the distal ACL. Medial Compartment: There is a 5 x 3 mm full-thickness chondral defect situated lateral to the mid surface of the medial femoral condyle. Grade 3 chondromalacia along the central weightbearing surface of the medial tibial plateau. Predominant grade II chondromalacia elsewhere of the medial femoral condyle. Tearing along the undersurface and involving the apical margin within the body of the medial meniscus. Series 7 images 18 through 22 demonstrate a resultant slender 1.5 x 0.4 cm slender flap fragment flipped around the corner along side the periphery of the tibial plateau. Complex tearing with truncation continues involving the posterior horn of the meniscus. This includes a high-grade radial component of tear towards the far posterior horn. Tearing continues into the posterior root insertion. No parameniscal cyst. Lateral Compartment: There is no evidence for discrete lateral meniscal tear. No displaced flap fragment or parameniscal cyst. There is no focal chondral defect. No other significant changes of chondromalacia. Patellofemoral articulation: There grade 2-3 changes of chondromalacia throughout the inferior two thirds of the patella. No other significant chondromalacia. CONCLUSION: 1. Tearing of the body and posterior horn medial meniscus including a rather high-grade radial component of the far posterior horn. There is a slender flap fragment flipped around the corner peripheral to the tibial plateau along the level of the body. 2. Grade II and III medial compartment chondromalacia. There is a small superimposed full-thickness chondral defect of the femoral condyle. 3. No lateral meniscal tear. The cruciate ligaments are intact. 4. Grade II-III patellar chondromalacia. 5. Moderately large knee joint effusion. There is a 1.1 cm loose body situated anterolateral to the distal ACL. 6. Prepatellar bursitis. KES Electronically signed on 08/20/2024 7:23:00 AM by Edd Perez M.D.
== END 2024-08-19 08:09 | disposition home or self-care (01) ==
LOC: MRI 08:08
PROVIDERS: Visit Provider Orthopaedic Surgery
DX: M25.561 Pain in right knee (principal); S83.241A Other tear of medial meniscus, current injury, right knee, initial encounter; M94.261 Chondromalacia, right knee; M22.41 Chondromalacia patellae, right knee; M25.461 Effusion, right knee; M70.41 Prepatellar bursitis, right knee
CPT/HCPCS: 73721